=== PATIENT | female | born 1930 | race Caucasian/White ===

== ENCOUNTER 2017-06-04 08:20 | Inpatient (IN) | payer MEDICARE, BC ==
[2017-06-04] MEDS ORDERED: Sodium Chloride 0.9% 10 ML Syringe FLUSH PRN ×2 (09:10→14:34)
[2017-06-04] MEDS ORDERED: Clopidogrel 75 MG Tab PO ONE (09:13)
[2017-06-04] MEDS ORDERED: metFORMIN 500 MG Tab PO ONE (09:13)
[2017-06-04] MEDS ORDERED: Aspirin 81 MG Tab.Chew PO ONE (09:14)
--- NOTE | 2017-06-04 09:19 | EDM.PDOC ---
ED HPI GENERAL MEDICAL PROBLEM - General Chief Complaint: General Stated Complaint: LOW BLOOD SUGARS Time Seen by Provider: 06/04/17 09:00 Source of Information: Reports: Patient, EMS, Old Records History Limitations: Reports: No Limitations - History of Present Illness INITIAL COMMENTS - FREE TEXT/NARRATIVE: 86 yo female is brought to the ER today via EMS for a 3 day hx of R leg weakness. Onset was sudden. Cannot now walk. Fell out of bed this morning which is what prompted the EMS call. Lives with a male friend. Has intermittent chest pain, not currently. Says she does not have a primary care provider, but is on several prescription meds. Has not taken any of her meds yet today. EMS found her to be lethargic and minimally responsive initially and this was resolved with glucose after they found her to be hypoglycemic with a BS of 50. Has mild abdominal discomfort that is new. Family states she's not eating normal amts for the past few days. 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 ) - Related Data Allergies Allergy/AdvReac Type Severity Reaction Status Date / Time No Known Allergies Allergy Verified 02/05/15 15:43 Home Meds: Home Meds metFORMIN [Glucophage] 500 mg PO BID 12/23/14 [History] Acetaminophen [Tylenol] 325 mg PO Q4H PRN 12/31/14 [History] Levothyroxine Sodium [Synthroid] 175 mcg PO ACBREAKFAST 12/31/14 [History] Nicotine [Nicoderm CQ] 1 patch TD DAILY 12/31/14 [History] traMADol HCl [Tramadol HCl] 50 mg PO Q8HR PRN 12/31/14 [History] Aspirin [Children's Aspirin] 1 tab PO DAILY 02/05/15 [History] Clopidogrel [Plavix] 1 tab PO DAILY 02/05/15 [History] Doxycycline Hyclate 1 cap PO BID 02/05/15 [History] Hydrocodone/Acetaminophen [[place] 5-325] 1 tab PO Q4H PRN 02/05/15 [History] Insulin Glarg,Human.Rec.Analog [Lantus] 5 units SUBCUT DAILY 02/05/15 [History] Insulin Glarg,Human.Rec.Analog [Lantus] 10 units SUBCUT DAILY 02/05/15 [History] Insulin Lispro [Humalog] 1 dose SUBCUT ASDIRECTED 02/05/15 [History] Magnesium Hydroxide [Milk of Magnesia] 1 dose PO ASDIRECTED PRN 02/05/15 [ History] Sertraline HCl 25 mg PO DAILY 02/05/15 [History] Simvastatin [Zocor] 1 tab PO DAILY 02/05/15 [History] Past Medical History HEENT History: Reports: Impaired Vision Cardiovascular History: Reports: Blood Clots/VTE/DVT, Hypertension Musculoskeletal History: Reports: Osteoarthritis Endocrine/Metabolic History: Reports: Diabetes, Type II, Hypothyroidism - Infectious Disease History Infectious Disease History: Reports: Chicken Pox, Measles, Mumps - Past Surgical History HEENT Surgical History: Reports: Oral Surgery, Tonsillectomy Musculoskeletal Surgical History: Reports: Amputation Other Musculoskeletal Surgeries/Procedures:: toes of the left foot Social & Family History - Tobacco Use Smoking Status *Q: Never Smoker Years of Tobacco use: 70 Used Tobacco, but Quit: Yes Month Tobacco Last Used: December Second Hand Smoke Exposure: No - Caffeine Use Caffeine Use: Reports: Coffee - Alcohol Use Days Per Week of Alcohol Use: 0 - Recreational Drug Use Recreational Drug Use: No ED ROS GENERAL - Review of Systems Review Of Systems: See Below Constitutional: Reports: No Symptoms HEENT: Reports: No Symptoms Respiratory: Reports: No Symptoms Cardiovascular: Reports: Chest Pain (intermittent, now now) GI/Abdominal: Reports: No Symptoms : Reports: No Symptoms Musculoskeletal: Reports: No Symptoms Skin: Reports: No Symptoms Neurological: Reports: Weakness (RLE) Psychiatric: Reports: No Symptoms Hematologic/Lymphatic: Reports: No Symptoms ED EXAM, GENERAL - Physical Exam Exam: See Below Exam Limited By: No Limitations General Appearance: Alert, WD/WN, No Apparent Distress Eye Exam: Bilateral Eye: EOMI, Normal Inspection, PERRL Ears: Normal External Exam, Normal Canal, Hearing Grossly Normal, Normal TMs Ear Exam: Bilateral Ear: Auricle Normal, Canal Normal Nose: Normal Inspection, Normal Mucosa, No Blood Throat/Mouth: Normal Inspection, Normal Lips, Normal Teeth, Normal Oropharynx, Normal Voice, No Airway Compromise Head: Atraumatic, Normocephalic Neck: Normal Inspection, Supple, Non-Tender, Carotid Bruit (R sided bruit) Respiratory/Chest: No Respiratory Distress, Lungs Clear, Normal Breath Sounds, No Accessory Muscle Use Cardiovascular: Regular Rate, Rhythm, No Edema GI/Abdominal: Normal Bowel Sounds, Soft, Non-Tender Back Exam: Normal Inspection. No: CVA Tenderness (R), CVA Tenderness (L) Extremities: Normal Inspection, Normal Range of Motion, Non-Tender, No Pedal Edema Neurological: Alert, Oriented, CN II-XII Intact, Normal Cognition, Normal Reflexes, Sensory/Motor Deficit (R leg strength 2/5, Babinski up going on R. ) Psychiatric: Normal Affect, Normal Mood Skin Exam: Warm, Dry, Intact, Normal Color, No Rash Lymphatic: No Adenopathy EKG INTERPRETATION EKG Date: 06/04/17 Time: 10:05 Rhythm: NSR Rate (Beats/Min): 84 [place]: Normal P-Wave: Present QRS: Normal ST-T: Normal QT: Normal Comparison: No Change Course - Vital Signs Text/Narrative:: Had a watery stool here in the ER. Last Recorded V/S: Last Vital Signs Temp 35.6 C 06/04/17 08:39 Pulse 82 06/04/17 08:39 Resp 14 06/04/17 08:39 BP 118/62 06/04/17 08:39 Pulse Ox 96 06/04/17 08:39 - Orders/Labs/Meds Orders: Active Orders 24 hr Category Date Time Status EKG Documentation Completion [RC] ASDIRECTED Care 06/04/17 09:10 Active Hemoccult [Fecal Occult Blood Collection] [RC] Care 06/04/17 10:05 Active ASDIRECTED CLOSTRIDIUM DIFFICILE BY PCR [RM] Stat Lab 06/04/17 09:27 Uncollected TYPE AND SCREEN [BBK] Stat Lab 06/04/17 09:55 Received UA W/MICROSCOPIC [URIN] Stat Lab 06/04/17 09:09 Uncollected Sodium Chloride 0.9% [Saline Flush] Med 06/04/17 09:10 Active 10 ml FLUSH ASDIRECTED PRN Saline Lock Insert [OM.PC] Routine Oth 06/04/17 09:10 Ordered EKG 12 Lead [EK] Routine Ther 06/04/17 09:09 Ordered Medication Orders Sodium Chloride (Saline Flush) 10 ml FLUSH ASDIRECTED PRN PRN Reason: Keep Vein Open Labs: Laboratory Tests 06/04/17 06/04/17 Range/Units 09:55 09:55 WBC 10.2 (4.5-11.0) K/uL RBC 3.53 (3.30-5.50) M/uL Hgb 6.9 L* D (12.0-15.0) g/dL Hct 24.9 L (36.0-48.0) % MCV 71 L (80-98) fL MCH 20 L (27-31) pg MCHC 28 L (32-36) % Plt Count 461 H (150-400) K/uL Sodium 140 (140-148) mmol/L Potassium 3.1 L (3.6-5.2) mmol/L Chloride 102 (100-108) mmol/L Carbon Dioxide 31 (21-32) mmol/L Anion Gap 10.1 (5.0-14.0) mmol/L BUN 20 H (7-18) mg/dL Creatinine 0.9 (0.6-1.0) mg/dL Est Cr Clr Drug Dosing 42.82 mL/min Estimated GFR (MDRD) 59 L (>60) Glucose 164 H (74-106) mg/dL Calcium 8.5 (8.5-10.1) mg/dL Troponin I < 0.017 (0.000-0.056) ng/mL TSH, Ultra Sensitive 3.671 (0.358-3.740) uIU/mL Meds: Medications Generic Name Dose Route Start Last Admin Trade Name Freq PRN Reason Stop Dose Admin Sodium Chloride 10 ml 06/04/17 09:10 Saline Flush FLUSH ASDIRECTED PRN Keep Vein Open Discontinued Medications Generic Name Dose Route Start Last Admin Trade Name Freq PRN Reason Stop Dose Admin Aspirin 81 mg 06/04/17 09:14 06/04/17 10:01 Aspirin PO 06/04/17 09:15 81 mg ONETIME ONE Administration Clopidogrel Bisulfate 75 mg 06/04/17 09:13 06/04/17 10:01 Plavix PO 06/04/17 09:14 75 mg ONETIME ONE Administration Metformin HCl 500 mg 06/04/17 09:13 06/04/17 10:01 Glucophage PO 06/04/17 09:14 500 mg ONETIME ONE Administration Potassium Chloride 20 meq 06/04/17 11:07 Potassium Chloride PO 06/04/17 11:08 ONETIME ONE Departure - Departure Time of Disposition: 11:20 Disposition: Admitted As Inpatient 65 Condition: Fair Clinical Impression: Hypokalemia, Right leg weakness, Hypoglycemia Anemia Qualifiers: Anemia type: iron deficiency Iron deficiency anemia type: unspecified iron deficiency Qualified Code(s): D50.9 - Iron deficiency anemia, unspecified - Discharge Information Referrals: PCP,None [Primary Care Provider] - Forms: ED Department Discharge - My Orders Last 24 Hours: My Active Orders 06/04/17 09:09 UA W/MICROSCOPIC [URIN] Stat EKG 12 Lead [EK] Routine 06/04/17 09:10 EKG Documentation Completion [RC] ASDIRECTED Sodium Chloride 0.9% [Saline Flush] 10 ml FLUSH ASDIRECTED PRN Saline Lock Insert [OM.PC] Routine 06/04/17 09:27 CLOSTRIDIUM DIFFICILE BY PCR [RM] Stat 06/04/17 09:55 TYPE AND SCREEN [BBK] Stat 06/04/17 10:05 Hemoccult [Fecal Occult Blood Collection] [RC] ASDIRECTED - Assessment/Plan Last 24 Hours: My Active Orders 06/04/17 09:09 UA W/MICROSCOPIC [URIN] Stat EKG 12 Lead [EK] Routine 06/04/17 09:10 EKG Documentation Completion [RC] ASDIRECTED Sodium Chloride 0.9% [Saline Flush] 10 ml FLUSH ASDIRECTED PRN Saline Lock Insert [OM.PC] Routine 06/04/17 09:27 CLOSTRIDIUM DIFFICILE BY PCR [RM] Stat 06/04/17 09:55 TYPE AND SCREEN [BBK] Stat 06/04/17 10:05 Hemoccult [Fecal Occult Blood Collection] [RC] ASDIRECTED
--- NOTE | 2017-06-04 09:55 | CT ---
Head wo Cont INDICATION: Right leg weakness x3 days, sudden onset. Total DLP 698. COMPARISON: None FINDINGS: No acute intracranial hemorrhage, mass, or edema. Generalized cerebral and cerebellar volum e loss. Patchy low attenuation in the periventricular and subcortical deep white matter is nonspecifi c, but most compatible with chronic small-vessel ischemic changes. Trace fluid left mastoid air cells . Remainder unremarkable. IMPRESSION: No acute intracranial abnormality.
[2017-06-04] MEDS ORDERED: Potassium Chloride 10 MEQ Cap.ER PO ONE (11:07)
--- NOTE | 2017-06-04 12:57 | PCM.HP ---
H&P History of Present Illness - General Date of Service: 06/04/17 Admit Problem/Dx: Admission Diagnosis/Problem Admission Diagnosis/Problem Anemia Source of Information: Patient, Family, Provider, RN Notes Reviewed History Limitations: Reports: Altered Mental Status (Dementia) - History of Present Illness Initial Comments - Free Text/Narative: This patient is an 86-year-old woman who is admitted through the emergency department because of progressive weakness and severe anemia. Family and friend give a history that she has become progressively more weak over the past month to the point that she is been in bed most of the time over the past few weeks. About a month ago had an episode of hematemesis but has had none since then. She 's had abdominal pain and her oral intake has been relatively poor. Over the past 3 days has had significant weakness in her right leg to the point that she' s been unable to ambulate. 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 On evaluation in the emergency department her hemoglobin is 6.9 and she has a potassium of 3.1, renal function is fairly good. - Related Data Allergies/Adverse Reactions: Allergies Allergy/AdvReac Type Severity Reaction Status Date / Time No Known Allergies Allergy Verified 02/05/15 15:43 Home Medications: Home Meds metFORMIN [Glucophage] 500 mg PO BID 12/23/14 [History] Acetaminophen [Tylenol] 325 mg PO Q4H PRN 12/31/14 [History] Levothyroxine Sodium [Synthroid] 175 mcg PO ACBREAKFAST 12/31/14 [History] Nicotine [Nicoderm CQ] 1 patch TD DAILY 12/31/14 [History] traMADol HCl [Tramadol HCl] 50 mg PO Q8HR PRN 12/31/14 [History] Aspirin [Children's Aspirin] 1 tab PO DAILY 02/05/15 [History] Clopidogrel [Plavix] 1 tab PO DAILY 02/05/15 [History] Doxycycline Hyclate 1 cap PO BID 02/05/15 [History] Hydrocodone/Acetaminophen [[place] 5-325] 1 tab PO Q4H PRN 02/05/15 [History] Insulin Glarg,Human.Rec.Analog [Lantus] 5 units SUBCUT DAILY 02/05/15 [History] Insulin Glarg,Human.Rec.Analog [Lantus] 10 units SUBCUT DAILY 02/05/15 [History] Insulin Lispro [Humalog] 1 dose SUBCUT ASDIRECTED 02/05/15 [History] Magnesium Hydroxide [Milk of Magnesia] 1 dose PO ASDIRECTED PRN 02/05/15 [ History] Sertraline HCl 25 mg PO DAILY 02/05/15 [History] Simvastatin [Zocor] 1 tab PO DAILY 02/05/15 [History] Past Medical History HEENT History: Reports: Impaired Vision Cardiovascular History: Reports: Blood Clots/VTE/DVT, Hypertension Musculoskeletal History: Reports: Osteoarthritis Endocrine/Metabolic History: Reports: Diabetes, Type II, Hypothyroidism - Infectious Disease History Infectious Disease History: Reports: Chicken Pox, Measles, Mumps - Past Surgical History HEENT Surgical History: Reports: Oral Surgery, Tonsillectomy Musculoskeletal Surgical History: Reports: Amputation Other Musculoskeletal Surgeries/Procedures:: toes of the left foot Social & Family History - Tobacco Use Smoking Status *Q: Never Smoker Years of Tobacco use: 70 Used Tobacco, but Quit: Yes Month Tobacco Last Used: December Hand Smoke Exposure: No - Caffeine Use Caffeine Use: Reports: Coffee - Alcohol Use Days Per Week of Alcohol Use: 0 - Recreational Drug Use Recreational Drug Use: No H&P Review of Systems - Review of Systems: Review Of Systems: See Below General: Reports: Weakness, Fatigue, Decreased Appetite, Weight Loss. Denies: Fever, Chills HEENT: Reports: No Symptoms Pulmonary: Reports: No Symptoms Cardiovascular: Reports: No Symptoms Gastrointestinal: Reports: Abdominal Pain, Diarrhea, Decreased Appetite, Difficulty Swallowing, Hematemesis, Nausea. Denies: Distension, Hematochezia, Melena Genitourinary: Reports: No Symptoms Musculoskeletal: Reports: Other (Status post amputation of the left foot) Skin: Reports: No Symptoms Psychiatric: Reports: No Symptoms Neurological: Reports: Confusion, Weakness. Denies: Headache, Numbness, Paresthesia, Pre-Existing Deficit Hematologic/Lymphatic: Reports: Anemia Immunologic: Reports: No Symptoms Exam - Exam Exam: See Below - Vital Signs Vital Signs: Last Vital Signs Temp 96.1 F 06/04/17 08:39 Pulse 82 06/04/17 08:39 Resp 14 06/04/17 08:39 BP 118/62 06/04/17 08:39 Pulse Ox 96 06/04/17 08:39 Weight: 153 lb - Exam Quality Assessment: DVT Prophylaxis General: Alert, Cooperative, Mild Distress HEENT: Conjunctiva Clear, Hearing Intact, Normal Nasal Septum, Posterior Pharynx Clear, Pupils Equal. No: Mucosa Moist & [place] Neck: Supple, Trachea Midline, +2 Carotid Pulse wo Bruit Lungs: Clear to Auscultation, Normal Respiratory Effort Cardiovascular: Regular Rate, Regular Rhythm, Normal S1, Normal S2, Systolic Murmur. No: Diastolic Murmur GI/Abdominal Exam: Normal Bowel Sounds, Soft, No Organomegaly, No Distention, Tender, Mass (Lower quadrant). No: Guarding, Rigid, Rebound Back Exam: Normal Inspection, Full Range of Motion Extremities: Normal Inspection, Non-Tender, No Pedal Edema Skin: Warm, Dry, Intact Neurological: Cranial Nerves Intact, Normal Speech, Sensation Intact, Focal Deficit, Other (Moderate weakness right lower extremity). No: Strength Equal Bilateral Neuro Extensive - Mental Status: Alert, Disorientation to Time, Memory Loss- Remote Events, Memory Loss-Recent Events. No: Disorientation to Person, Disorientation to Place - Patient Data Lab Results Last 24 hrs: Laboratory Results - last 24 hr 06/04/17 06/04/17 06/04/17 Range/Units 09:55 09:55 09:55 WBC 10.2 (4.5-11.0) K/uL RBC 3.53 (3.30-5.50) M/uL Hgb 6.9 L* D (12.0-15.0) g/dL Hct 24.9 L (36.0-48.0) % MCV 71 L (80-98) fL MCH 20 L (27-31) pg MCHC 28 L (32-36) % Plt Count 461 H (150-400) K/uL Sodium 140 (140-148) mmol/L Potassium 3.1 L (3.6-5.2) mmol/L Chloride 102 (100-108) mmol/L Carbon Dioxide 31 (21-32) mmol/L Anion Gap 10.1 (5.0-14.0) mmol/L BUN 20 H (7-18) mg/dL Creatinine 0.9 (0.6-1.0) mg/dL Est Cr Clr Drug Dosing 42.82 mL/min Estimated GFR (MDRD) 59 L (>60) Glucose 164 H (74-106) mg/dL Calcium 8.5 (8.5-10.1) mg/dL Troponin I < 0.017 (0.000-0.056) ng/mL TSH, Ultra Sensitive 3.671 (0.358-3.740) uIU/mL Blood Type O POSITIVE Gel Antibody Screen Negative Result Diagrams: 06/04/17 09:55 06/04/17 09:55 *Q Meaningful Use (ADM) - VTE *Q VTE Criteria *Q: VTE Pharmacological Contraindications *Q: Patient has Severe Anemia - VTE Risk Assess *Q Each Risk Factor Represents 1 Point: None Total Score 1 Point Risk Factors: 0 Each Risk Factor Represents 2 Points: None Total Score 2 Point Risk Factors: 0 Each Risk Factor Represents 3 Points: Age 75 Years or Greater Total Score 3 Point Risk Factors: 3 Each Risk Factor Represents 5 Points: None Total Score 5 Point Risk Factors: 0 Venous Thromboembolism Risk Factor Score *Q: 3 - Stroke *Q Stroke Criteria *Q: - AMI *Q AMI Criteria *Q: Problem List Initiated/Reviewed/Updated: Yes Orders Last 24hrs: Active Orders 24 hr Category Date Time Status Patient Status Manage Transfer [TRANSFER] Routine ADT 06/04/17 12:28 Active EKG Documentation Completion [RC] ASDIRECTED Care 06/04/17 09:10 Active Hemoccult [Fecal Occult Blood Collection] [RC] Care 06/04/17 10:05 Active ASDIRECTED CLOSTRIDIUM DIFFICILE BY PCR [] Stat Lab 06/04/17 09:27 Uncollected PATIENT RETYPE [BBK] Stat Lab 06/04/17 09:55 Results TYPE AND SCREEN [BBK] Stat Lab 06/04/17 09:55 Results UA W/MICROSCOPIC [URIN] Stat Lab 06/04/17 09:09 Uncollected Sodium Chloride 0.9% [Saline Flush] Med 06/04/17 09:10 Active 10 ml FLUSH ASDIRECTED PRN Saline Lock Insert [OM.PC] Routine Oth 06/04/17 09:10 Ordered Resuscitation Status Routine Resus Stat 06/04/17 12:32 Ordered EKG 12 Lead [EK] Routine Ther 06/04/17 09:09 Ordered Medication Orders Sodium Chloride (Saline Flush) 10 ml FLUSH ASDIRECTED PRN PRN Reason: Keep Vein Open Assessment/Plan Comment:: ASSESSMENT AND PLAN SEVERE MICROCYTIC ANEMIA-likely secondary to GI blood loss, history of hematemesis one month ago. Question possible underlying malignancy given history of progressive decline over the past several weeks. -Iron studies and ferritin -Transfuse 2 units of red blood cells -Follow-up hemoglobin in a.m. -Protonix 40 mg IV every 12 hours -Consult Dr. Cárdenas for EGD and colonoscopy in a.m. RIGHT LEG WEAKNESS-specific etiology not apparent, CT scan of the head showed no evidence of acute or subacute CVA. Leg has been significantly weak for at least 3 days. Significant anemia may be contributing factor. -Consider lumbar spine imaging ABDOMINAL PAIN WITH LEFT LOWER QUADRANT MASS-also likely underlying cause of her recent decline in physical and cognitive status -CT scan of the abdomen and pelvis with IV and oral contrast TYPE 2 DIABETES MELLITUS-poor oral intake over the past several weeks, glucose level this morning found to be significantly low. -Hold usual insulin and and metformin -4 times a day glucometers -Low-dose sliding scale NovoLog MAINTENANCE ISSUES -DVT prophylaxis; SCUDs, hold on anticoagulation because of pending procedures and severe anemia -GI prophylaxis; Protonix as above -Baca catheter; not indicated -Nutrition; regular diet, nothing by mouth after midnight -Nicotine dependence; not required CODE STATUS-FULL CODE ADMISSION STATUS-patient will be admitted to inpatient status, expect at least a 2 night hospital stay for evaluation and management of problems as outlined above. At the time of this admission I do not reasonably expected evaluation and management of this problem will require more than a 96 hour hospital stay. DISPOSITION-anticipate discharge to home after the hospital stay. PRIMARY CARE PROVIDER-Mayi Bryant
[2017-06-04] MEDS ORDERED: Bisacodyl 5 MG Tab PO ONE ×2 (13:45→20:00)
[2017-06-04] MEDS ORDERED: 50% Dextrose in Water 50 ML Syringe IV PRN (14:34)
[2017-06-04] MEDS ORDERED: Magnesium Hydroxide 400 MG/5 ML Susp 30 ML Cup PO PRN (14:34)
[2017-06-04] MEDS ORDERED: Polyethylene Glycol 3350 Powder 17 GM Packet PO PRN (14:34)
[2017-06-04] MEDS ORDERED: Sodium Chloride 0.9% 1,000 ML IV SCH (14:34)
[2017-06-04] MEDS ORDERED: Acetaminophen/HYDROcodone 325-5 MG Tab PO PRN (14:34)
[2017-06-04] MEDS ORDERED: Docusate Sodium 100 MG Cap PO PRN (14:34)
[2017-06-04] MEDS ORDERED: Ondansetron 4 MG/2 ML SDV IV PRN (14:34)
[2017-06-04] MEDS ORDERED: Albuterol 0.083% 2.5 MG/3 ML Neb Soln NEB PRN (14:34)
[2017-06-04] MEDS ORDERED: Glucose Gel 15 GM in 37.5 GM Tube PO PRN (14:34)
[2017-06-04] MEDS ORDERED: Acetaminophen 325 MG Tab PO PRN (14:34)
[2017-06-04] MEDS ORDERED: Potassium Chloride 20 MEQ Tab.ER PO ONE (15:30)
[2017-06-04] MEDS: Pantoprazole 40 MG Vial IV SCH (16:11)
[2017-06-04] MEDS: Potassium Chloride 20 MEQ, Lidocaine 1% 2 ML in Sodium Chloride 0.9% 100 ML IV SCH ×2 (16:15→21:02)
[2017-06-04] MEDS ORDERED: Iopamidol 612 MG/ML 100 ML Bottle IV SCH (16:45)
[2017-06-04] MEDS ORDERED: Sodium Chloride 0.9% 80 ML IV SCH (16:45)
[2017-06-04] MEDS ORDERED: Polyethylene Glycol 3350 Powder 238 GM Bot PO ONE (17:00)
[2017-06-04] MEDS: Sodium Ferric Gluconate Cmplex 250 MG in Sodium Chloride 0.9% 100 ML IV ONE ×2 (17:07→21:14)
[2017-06-04] MEDS: Insulin Aspart 100 Units/ML 3 ML Pen SUBCUT SCH ×2 (18:15→21:11)
[2017-06-04] MEDS ORDERED: Potassium Chloride 40 MEQ in Premix Bag 1 BAG IV ONE (20:00)
[2017-06-04] MEDS: Simvastatin 20 MG Tab PO SCH (21:15)
[2017-06-05] MEDS ORDERED: Dextrose 5%-0.9% NaCl 1,000 ML IV SCH ×2 (05:30→11:15)
[2017-06-05] MEDS: Pantoprazole 40 MG Vial IV SCH ×2 (05:46→14:34)
[2017-06-05] MEDS: Insulin Aspart 100 Units/ML 3 ML Pen SUBCUT SCH ×4 (07:28→21:17)
[2017-06-05] MEDS ORDERED: Levothyroxine 25 MCG Tab PO SCH (07:30)
[2017-06-05] MEDS ORDERED: cefTRIAXone 1 GM in Sodium Chloride 0.9% 50 ML IV SCH (08:00)
[2017-06-05] MEDS ORDERED: SIMVASTATIN PO SCH (09:00)
[2017-06-05] MEDS ORDERED: Propofol 200 MG/20 ML SDV ONE (09:02)
[2017-06-05] MEDS ORDERED: fentaNYL 100 MCG/2 ML SDV ONE (09:02)
[2017-06-05] MEDS ORDERED: Sodium Ferric Gluconate Cmplex 250 MG in Sodium Chloride 0.9% 100 ML IV ONE (10:00)
[2017-06-05] MEDS: Sertraline 25 MG Tab PO SCH (10:16)
--- NOTE | 2017-06-05 11:20 | PCM.PN ---
- General Info Date of Service: 06/05/17 Subjective Update: This patient has improved modestly since admission, slightly more alert and energetic. Appears to have at least mild to moderate cognitive impairment and difficulty with memory. Chest x-ray showed evidence of large masses within the right chest. CT scan shows evidence of large cystic lesions within the chest as well as several smaller lesions. Hemoglobin has come up following transfusion of 2 units of red blood cells. EGD and colonoscopy performed this morning by Dr. Cárdenas show no obvious source of blood loss or other significant abnormalities. Vital signs have been stable and she has remained afebrile. - Patient Data Vitals - Most Recent: Last Vital Signs Temp 97.3 F 06/05/17 07:00 Pulse 94 06/05/17 10:00 Resp 18 06/05/17 10:00 BP 161/65 H 06/05/17 10:00 Pulse Ox 91 L 06/05/17 10:00 Weight - Most Recent: 137 lb 1.6 oz I&O - Last 24 Hours: Intake & Output 06/04/17 06/05/17 06/05/17 22:59 06:59 14:59 Intake Total 720 2056 Output Total 1375 200 100 Balance -655 1856 -100 Lab Results Last 24 Hours: Laboratory Results - last 24 hr 06/04/17 06/04/17 06/04/17 Range/Units 14:34 14:34 14:34 WBC (4.5-11.0) K/uL RBC (3.30-5.50) M/uL Hgb (12.0-15.0) g/dL Hct (36.0-48.0) % MCV (80-98) fL MCH (27-31) pg MCHC (32-36) % Plt Count (150-400) K/uL Neut % (Auto) (36-66) % Lymph % (Auto) (24-44) % [place] % (Auto) (2-6) % Eos % (Auto) (2-4) % Baso % (Auto) (0-1) % Sodium (140-148) mmol/L Potassium (3.6-5.2) mmol/L Chloride (100-108) mmol/L Carbon Dioxide (21-32) mmol/L Anion Gap (5.0-14.0) mmol/L BUN (7-18) mg/dL Creatinine (0.6-1.0) mg/dL Est Cr Clr Drug Dosing mL/min Estimated GFR (MDRD) (>60) Glucose (74-106) mg/dL Calcium (8.5-10.1) mg/dL Magnesium (1.8-2.4) mg/dL Iron 14 L (50-170) ug/dL TIBC 170 L (250-450) ug/dl % Saturation 8 L (20-55) % Ferritin 280 (8-388) ng/ml Total Bilirubin 0.4 (0.2-1.0) mg/dL Direct Bilirubin 0.11 (0.0-0.2) mg/dL Indirect Bilirubin 0.29 AST 21 (15-37) U/L ALT 15 (12-78) U/L Alkaline Phosphatase 99 (46-116) U/L Total Protein 4.9 L (6.4-8.2) g/dL Albumin 2.0 L (3.4-5.0) g/dL Globulin 2.9 (2.3-3.5) g/dL Albumin/Globulin Ratio 0.7 L (1.2-2.2) Urine Color Urine Appearance Urine pH (4.5-8.0) Ur Specific [place] (1.008-1.030) Urine Protein (NEGATIVE) mg/dL Urine Glucose (UA) (NEGATIVE) mg/dL Urine Ketones (NEGATIVE) mg/dL Urine Occult Blood (NEGATIVE) Urine Nitrite (NEGATIVE) Urine Bilirubin (NEGATIVE) Urine Urobilinogen (NORMAL) mg/dL Ur Leukocyte Esterase (NEGATIVE) Urine RBC (0-5) Urine WBC (0-5) Ur Epithelial Cells Amorphous Sediment Urine Bacteria Urine Mucus 06/04/17 06/05/17 06/05/17 Range/Units 15:00 04:30 04:30 WBC 10.8 (4.5-11.0) K/uL RBC 4.20 (3.30-5.50) M/uL Hgb 9.4 L D (12.0-15.0) g/dL Hct 30.6 L (36.0-48.0) % MCV 73 L (80-98) fL MCH 22 L (27-31) pg MCHC 31 L (32-36) % Plt Count 499 H (150-400) K/uL Neut % (Auto) 76 H (36-66) % Lymph % (Auto) 8 L (24-44) % [place] % (Auto) 13 H (2-6) % Eos % (Auto) 2 (2-4) % Baso % (Auto) 0 (0-1) % Sodium 144 (140-148) mmol/L Potassium 3.6 (3.6-5.2) mmol/L Chloride 105 (100-108) mmol/L Carbon Dioxide 28 (21-32) mmol/L Anion Gap 14.6 H (5.0-14.0) mmol/L BUN 16 (7-18) mg/dL Creatinine 0.7 (0.6-1.0) mg/dL Est Cr Clr Drug Dosing 55.06 mL/min Estimated GFR (MDRD) > 60 (>60) Glucose 62 L (74-106) mg/dL Calcium 8.2 L (8.5-10.1) mg/dL Magnesium 1.8 (1.8-2.4) mg/dL Iron (50-170) ug/dL TIBC (250-450) ug/dl % Saturation (20-55) % Ferritin (8-388) ng/ml Total Bilirubin 0.4 (0.2-1.0) mg/dL Direct Bilirubin (0.0-0.2) mg/dL Indirect Bilirubin AST 22 (15-37) U/L ALT 14 (12-78) U/L Alkaline Phosphatase 102 (46-116) U/L Total Protein 5.4 L (6.4-8.2) g/dL Albumin 1.9 L (3.4-5.0) g/dL Globulin 3.5 (2.3-3.5) g/dL Albumin/Globulin Ratio 0.5 L (1.2-2.2) Urine Color Yellow Urine Appearance Cloudy Urine pH 5.0 (4.5-8.0) Ur Specific [place] 1.015 (1.008-1.030) Urine Protein Negative (NEGATIVE) mg/dL Urine Glucose (UA) Normal (NEGATIVE) mg/dL Urine Ketones Negative (NEGATIVE) mg/dL Urine Occult Blood Negative (NEGATIVE) Urine Nitrite Positive H (NEGATIVE) Urine Bilirubin Negative (NEGATIVE) Urine Urobilinogen Normal (NORMAL) mg/dL Ur Leukocyte Esterase Large (NEGATIVE) Urine RBC 0-5 (0-5) Urine WBC 30-40 H (0-5) Ur Epithelial Cells Few Amorphous Sediment Few Urine Bacteria Many Urine Mucus Rare Shayan Results Last 24 Hours: Microbiology 06/04/17 22:00 Stool Occult Blood (SHAYAN) - Final Stool / Feces 06/04/17 19:12 Clostridium difficile (PCR) - Final Stool / Feces NEGATIVE CDIFF TOXIN Med Orders - Current: Current Medications Acetaminophen (Tylenol) 650 mg PO Q4H PRN PRN Reason: Pain (Mild 1-3)/fever Hydrocodone Bitart/Acetaminophen ([place] 325-5 Mg) 1 tab PO Q4H PRN PRN Reason: Pain (moderate 4-6) Albuterol (Proventil Neb Soln) 2.5 mg NEB Q4H PRN PRN Reason: Shortness Of Breath/wheezing Dextrose (Glutose 15) 15 gm PO ASDIRECTED PRN PRN Reason: Hypoglycemia Dextrose/Water (Dextrose 50% In Water) 50 ml IV ASDIRECTED PRN PRN Reason: Hypoglycemia Last Admin: 06/05/17 05:38 Dose: 25 ml Docusate Sodium (Colace) 100 mg PO BID PRN PRN Reason: Constipation Ferric Sodium Gluconate Complex 250 mg/ Sodium Chloride 120 mls @ 50 mls/hr IV ONETIME ONE Stop: 06/05/17 12:23 Last Admin: 06/05/17 10:54 Dose: 50 mls/hr Ceftriaxone Sodium 1 gm/ (Sodium Chloride) 50 mls @ 100 mls/hr IV Q24H [facility] Last Admin: 06/05/17 08:41 Dose: 100 mls/hr Dextrose/Sodium Chloride (Dextrose 5%-Normal Saline) 1,000 mls @ 50 mls/hr IV ASDIRECTED [facility] Insulin Aspart (Novolog) 0 unit SUBCUT QIDACANDBED [facility] PRN Reason: Protocol Last Admin: 06/05/17 07:28 Dose: Not Given Levothyroxine Sodium 100 mcg/ (Levothyroxine Sodium 75 mcg) 175 mcg PO ACBREAKFAST [facility] Last Admin: 06/05/17 07:31 Dose: 175 mcg Magnesium Hydroxide (Milk Of Magnesia) 30 ml PO Q12H PRN PRN Reason: Constipation Ondansetron HCl (Zofran) 4 mg IV Q4H PRN PRN Reason: Nausea/Vomiting Pantoprazole Sodium (Protonix Iv) 40 mg IV Q12H [facility] Last Admin: 06/05/17 05:46 Dose: 40 mg Polyethylene Glycol (Miralax) 17 gm PO DAILY PRN PRN Reason: Constipation Sertraline HCl (Zoloft) 25 mg PO DAILY [facility] Last Admin: 06/05/17 10:16 Dose: 25 mg Simvastatin (Zocor) 10 mg PO BEDTIME [facility] Last Admin: 06/04/17 21:15 Dose: 10 mg Sodium Chloride (Saline Flush) 10 ml FLUSH ASDIRECTED PRN PRN Reason: Keep Vein Open Discontinued Medications Aspirin (Aspirin) 81 mg PO ONETIME ONE Stop: 06/04/17 09:15 Last Admin: 06/04/17 10:01 Dose: 81 mg Bisacodyl (Dulcolax) 10 mg PO ONETIME ONE Stop: 06/04/17 13:46 Last Admin: 06/04/17 16:15 Dose: Not Given Bisacodyl (Dulcolax) 10 mg PO ONETIME ONE Stop: 06/04/17 20:01 Last Admin: 06/04/17 21:15 Dose: 10 mg Clopidogrel Bisulfate (Plavix) 75 mg PO ONETIME ONE Stop: 06/04/17 09:14 Last Admin: 06/04/17 10:01 Dose: 75 mg Fentanyl (Sublimaze) Confirm Administered Dose 100 mcg .ROUTE .STK-MED ONE Stop: 06/05/17 09:03 Sodium Chloride (Normal Saline) 1,000 mls @ 125 mls/hr IV ASDIRECTED [facility] Last Admin: 06/04/17 15:15 Dose: 125 mls/hr Potassium Chloride 20 meq/Lidocaine HCl 2 ml/ Sodium Chloride 112 mls @ 56 mls/ hr IV Q2H [facility] Stop: 06/04/17 19:59 Last Admin: 06/04/17 21:02 Dose: 56 mls/hr Ferric Sodium Gluconate Complex 250 mg/ Sodium Chloride 120 mls @ 50 mls/hr IV ONETIME ONE Stop: 06/04/17 22:23 Last Admin: 06/04/17 21:14 Dose: Not Given Sodium Chloride (Normal Saline) 80 mls @ 3 mls/sec IV ASDIRECTED [facility] Stop: 06/04/17 18:00 Last Admin: 06/04/17 18:14 Dose: 3 mls/sec Dextrose/Sodium Chloride (Dextrose 5%-Normal Saline) 1,000 mls @ 125 mls/hr IV ASDIRECTED [facility] Last Admin: 06/05/17 05:50 Dose: 125 mls/hr Iopamidol (Isovue-300 (61%)) 100 ml IV . DIRECTED [facility] Stop: 06/04/17 18:00 Last Admin: 06/04/17 18:12 Dose: 100 ml Metformin HCl (Glucophage) 500 mg PO ONETIME ONE Stop: 06/04/17 09:14 Last Admin: 06/04/17 10:01 Dose: 500 mg Polyethylene Glycol (Miralax) 238 gm PO ONETIME ONE Stop: 06/04/17 17:01 Last Admin: 06/04/17 19:35 Dose: 238 gm Potassium Chloride (Potassium Chloride) 20 meq PO ONETIME ONE Stop: 06/04/17 11:08 Last Admin: 06/04/17 12:33 Dose: 20 meq Potassium Chloride (Klor-Con M20) 40 meq PO ONETIME ONE Stop: 06/04/17 15:31 Last Admin: 06/04/17 18:14 Dose: Not Given Propofol (Diprivan 20 Ml) Confirm Administered Dose 200 mg .ROUTE .STK-MED ONE Stop: 06/05/17 09:03 Sodium Chloride (Saline Flush) 10 ml FLUSH ASDIRECTED PRN PRN Reason: Keep Vein Open - Exam Quality Assessment: DVT Prophylaxis General: Alert, Cooperative, Mild Distress Lungs: Decreased Breath Sounds. No: Crackles, Rales, Rhonchi, Rub, Stridor, Wheezing Cardiovascular: Regular Rate, Regular Rhythm, No Murmurs GI/Abdominal Exam: Normal Bowel Sounds, Soft, Non-Tender, No Organomegaly, No Distention Extremities: Non-Tender, No Pedal Edema Skin: Warm, Dry, Intact - Problem List Review Problem List Initiated/Reviewed/Updated: Yes - My Orders Last 24 Hours: My Active Orders 06/04/17 12:32 Resuscitation Status Routine 06/04/17 14:34 Patient Status [ADT] Routine Ambulate [RC] QID Blood Glucose Check, Bedside [RC] QIDACANDBED Communication Order [RC] STAT Diabetes Education [RC] Click to Edit Height and Weight [RC] DAILY Intake and Output [RC] QSHIFT Notify Provider Consults [RC] ASDIRECTED Notify Provider Vital Signs [RC] ASDIRECTED Notify Provider [RC] PRN Oxygen Therapy [RC] PRN Peripheral IV Care [RC] Q12H RT Aerosol Therapy [RC] ASDIRECTED Up With Assistance [RC] ASDIRECTED Up to Chair [RC] QID VTE/DVT Education [RC] Per Unit Routine Vital Signs [RC] Q4H Consult to Physician [CONS] Routine PT Evaluation and Treatment [CONS] Routine Chest 2V [CR] Stat Chest Abdomen Pelvis w Cont [CT] Stat Acetaminophen [Tylenol] 650 mg PO Q4H PRN Acetaminophen/HYDROcodone [[place] 325-5 MG] 1 tab PO Q4H PRN Albuterol [Proventil Neb Soln] 2.5 mg NEB Q4H PRN Dextrose 50% in Water 50 ml IV ASDIRECTED PRN Dextrose [Glutose 15] 15 gm PO ASDIRECTED PRN Docusate Sodium [Colace] 100 mg PO BID PRN Magnesium Hydroxide [Milk of Magnesia] 30 ml PO Q12H PRN Ondansetron [Zofran] 4 mg IV Q4H PRN Polyethylene Glycol 3350 [MiraLAX] 17 gm PO DAILY PRN Sodium Chloride 0.9% [Saline Flush] 10 ml FLUSH ASDIRECTED PRN Peripheral IV Insertion Adult [OM.PC] Routine Sequential Compression Device [OM.PC] Per Unit Routine Transfuse Red Blood Cells [COMM] Urgent VTE Pharmacological Contraindications [AST] Per Unit Routine 06/04/17 15:30 Pantoprazole [ProTONIX IV] 40 mg IV Q12H 06/04/17 17:00 Insulin Aspart [NovoLOG] See Protocol SUBCUT QIDACANDBED 06/04/17 18:56 Urinary Catheter Assessment [RC] Q12H 06/04/17 19:00 Insert Baca Catheter [Insert Urinary Catheter] [OM.PC] Q24H 06/04/17 19:12 CULTURE STOOL + SHIGATOX [RM] Stat 06/04/17 21:00 Simvastatin [Zocor] 10 mg PO BEDTIME 06/05/17 07:30 Levothyroxine [Synthroid] 175 mcg PO ACBREAKFAST 06/05/17 07:48 CULTURE URINE [RM] Stat 06/05/17 08:00 cefTRIAXone [Rocephin] 1 gm Sodium Chloride 0.9% [Normal Saline] 50 ml IV Q24H 06/05/17 10:00 Sodium Ferric Gluconate Cmplex [Ferrlecit IV] 250 mg Sodium Chloride 0.9% [ Normal Saline] 100 ml IV ONETIME 06/05/17 11:15 Dextrose 5%-0.9% NaCl [Dextrose 5%-Normal Saline] 1,000 ml IV ASDIRECTED 06/05/17 11:30 GLUCOSE POC LAB TO COLLECT [POC] QIDACANDBED 06/05/17 16:30 GLUCOSE POC LAB TO COLLECT [POC] QIDACANDBED 06/05/17 21:00 GLUCOSE POC LAB TO COLLECT [POC] QIDACANDBED 06/05/17 Breakfast NPO After Midnight [Nothing per Oral After Midnight Diet] [DIET] Nothing per Oral After Midnight Diet [DIET] 06/06/17 05:00 BASIC METABOLIC PANEL,BMP [CHEM] Timed CBC WITH AUTO DIFF [HEME] Timed 06/06/17 07:30 GLUCOSE POC LAB TO COLLECT [POC] QIDACANDBED 06/06/17 11:30 GLUCOSE POC LAB TO COLLECT [POC] QIDACANDBED 06/06/17 16:30 GLUCOSE POC LAB TO COLLECT [POC] QIDACANDBED 06/06/17 21:00 GLUCOSE POC LAB TO COLLECT [POC] QIDACANDBED 06/07/17 07:30 GLUCOSE POC LAB TO COLLECT [POC] QIDACANDBED 06/07/17 11:30 GLUCOSE POC LAB TO COLLECT [POC] QIDACANDBED 06/07/17 16:30 GLUCOSE POC LAB TO COLLECT [POC] QIDACANDBED 06/07/17 21:00 GLUCOSE POC LAB TO COLLECT [POC] QIDACANDBED 06/08/17 07:30 GLUCOSE POC LAB TO COLLECT [POC] QIDACANDBED 06/08/17 11:30 GLUCOSE POC LAB TO COLLECT [POC] QIDACANDBED 06/08/17 16:30 GLUCOSE POC LAB TO COLLECT [POC] QIDACANDBED 06/08/17 21:00 GLUCOSE POC LAB TO COLLECT [POC] QIDACANDBED 06/09/17 07:30 GLUCOSE POC LAB TO COLLECT [POC] QIDACANDBED 06/09/17 11:30 GLUCOSE POC LAB TO COLLECT [POC] QIDACANDBED 06/09/17 16:30 GLUCOSE POC LAB TO COLLECT [POC] QIDACANDBED 06/09/17 21:00 GLUCOSE POC LAB TO COLLECT [POC] QIDACANDBED 06/10/17 07:30 GLUCOSE POC LAB TO COLLECT [POC] QIDACANDBED 06/10/17 11:30 GLUCOSE POC LAB TO COLLECT [POC] QIDACANDBED 06/10/17 16:30 GLUCOSE POC LAB TO COLLECT [POC] QIDACANDBED 06/10/17 21:00 GLUCOSE POC LAB TO COLLECT [POC] QIDACANDBED 06/11/17 07:30 GLUCOSE POC LAB TO COLLECT [POC] QIDACANDBED 06/11/17 11:30 GLUCOSE POC LAB TO COLLECT [POC] QIDACANDBED 06/11/17 16:30 GLUCOSE POC LAB TO COLLECT [POC] QIDACANDBED 06/11/17 21:00 GLUCOSE POC LAB TO COLLECT [POC] QIDACANDBED 06/12/17 07:30 GLUCOSE POC LAB TO COLLECT [POC] QIDACANDBED 06/12/17 11:30 GLUCOSE POC LAB TO COLLECT [POC] QIDACANDBED 06/12/17 16:30 GLUCOSE POC LAB TO COLLECT [POC] QIDACANDBED 06/12/17 21:00 GLUCOSE POC LAB TO COLLECT [POC] QIDACANDBED 06/13/17 07:30 GLUCOSE POC LAB TO COLLECT [POC] QIDACANDBED 06/13/17 11:30 GLUCOSE POC LAB TO COLLECT [POC] QIDACANDBED 06/13/17 16:30 GLUCOSE POC LAB TO COLLECT [POC] QIDACANDBED 06/13/17 21:00 GLUCOSE POC LAB TO COLLECT [POC] QIDACANDBED 06/14/17 07:30 GLUCOSE POC LAB TO COLLECT [POC] QIDACANDBED 06/14/17 11:30 GLUCOSE POC LAB TO COLLECT [POC] QIDACANDBED 06/14/17 16:30 GLUCOSE POC LAB TO COLLECT [POC] QIDACANDBED 06/14/17 21:00 GLUCOSE POC LAB TO COLLECT [POC] QIDACANDBED 06/15/17 07:30 GLUCOSE POC LAB TO COLLECT [POC] QIDACANDBED 06/15/17 11:30 GLUCOSE POC LAB TO COLLECT [POC] QIDACANDBED 06/15/17 16:30 GLUCOSE POC LAB TO COLLECT [POC] QIDACANDBED 06/15/17 21:00 GLUCOSE POC LAB TO COLLECT [POC] QIDACANDBED 06/16/17 07:30 GLUCOSE POC LAB TO COLLECT [POC] QIDACANDBED 06/16/17 11:30 GLUCOSE POC LAB TO COLLECT [POC] QIDACANDBED 06/16/17 16:30 GLUCOSE POC LAB TO COLLECT [POC] QIDACANDBED 06/16/17 21:00 GLUCOSE POC LAB TO COLLECT [POC] QIDACANDBED 06/17/17 07:30 GLUCOSE POC LAB TO COLLECT [POC] QIDACANDBED 06/17/17 11:30 GLUCOSE POC LAB TO COLLECT [POC] QIDACANDBED 06/17/17 16:30 GLUCOSE POC LAB TO COLLECT [POC] QIDACANDBED 06/17/17 21:00 GLUCOSE POC LAB TO COLLECT [POC] QIDACANDBED 06/18/17 07:30 GLUCOSE POC LAB TO COLLECT [POC] QIDACANDBED 06/18/17 11:30 GLUCOSE POC LAB TO COLLECT [POC] QIDACANDBED 06/18/17 16:30 GLUCOSE POC LAB TO COLLECT [POC] QIDACANDBED 06/18/17 21:00 GLUCOSE POC LAB TO COLLECT [POC] QIDACANDBED 06/19/17 07:30 GLUCOSE POC LAB TO COLLECT [POC] QIDACANDBED 06/19/17 11:30 GLUCOSE POC LAB TO COLLECT [POC] QIDACANDBED 06/19/17 16:30 GLUCOSE POC LAB TO COLLECT [POC] QIDACANDBED 06/19/17 21:00 GLUCOSE POC LAB TO COLLECT [POC] QIDACANDBED 06/20/17 07:30 GLUCOSE POC LAB TO COLLECT [POC] QIDACANDBED 06/20/17 11:30 GLUCOSE POC LAB TO COLLECT [POC] QIDACANDBED 06/20/17 16:30 GLUCOSE POC LAB TO COLLECT [POC] QIDACANDBED 06/20/17 21:00 GLUCOSE POC LAB TO COLLECT [POC] QIDACANDBED 06/21/17 07:30 GLUCOSE POC LAB TO COLLECT [POC] QIDACANDBED 06/21/17 11:30 GLUCOSE POC LAB TO COLLECT [POC] QIDACANDBED 06/21/17 16:30 GLUCOSE POC LAB TO COLLECT [POC] QIDACANDBED 06/21/17 21:00 GLUCOSE POC LAB TO COLLECT [POC] QIDACANDBED 06/22/17 07:30 GLUCOSE POC LAB TO COLLECT [POC] QIDACANDBED 06/22/17 11:30 GLUCOSE POC LAB TO COLLECT [POC] QIDACANDBED 06/22/17 16:30 GLUCOSE POC LAB TO COLLECT [POC] QIDACANDBED 06/22/17 21:00 GLUCOSE POC LAB TO COLLECT [POC] QIDACANDBED 06/23/17 07:30 GLUCOSE POC LAB TO COLLECT [POC] QIDACANDBED 06/23/17 11:30 GLUCOSE POC LAB TO COLLECT [POC] QIDACANDBED 06/23/17 16:30 GLUCOSE POC LAB TO COLLECT [POC] QIDACANDBED 06/23/17 21:00 GLUCOSE POC LAB TO COLLECT [POC] QIDACANDBED 06/24/17 07:30 GLUCOSE POC LAB TO COLLECT [POC] QIDACANDBED 06/24/17 11:30 GLUCOSE POC LAB TO COLLECT [POC] QIDACANDBED 06/24/17 16:30 GLUCOSE POC LAB TO COLLECT [POC] QIDACANDBED 06/24/17 21:00 GLUCOSE POC LAB TO COLLECT [POC] QIDACANDBED 06/25/17 07:30 GLUCOSE POC LAB TO COLLECT [POC] QIDACANDBED 06/25/17 11:30 GLUCOSE POC LAB TO COLLECT [POC] QIDACANDBED 06/25/17 16:30 GLUCOSE POC LAB TO COLLECT [POC] QIDACANDBED 06/25/17 21:00 GLUCOSE POC LAB TO COLLECT [POC] QIDACANDBED 06/26/17 07:30 GLUCOSE POC LAB TO COLLECT [POC] QIDACANDBED 06/26/17 11:30 GLUCOSE POC LAB TO COLLECT [POC] QIDACANDBED 06/26/17 16:30 GLUCOSE POC LAB TO COLLECT [POC] QIDACANDBED 06/26/17 21:00 GLUCOSE POC LAB TO COLLECT [POC] QIDACANDBED 06/27/17 07:30 GLUCOSE POC LAB TO COLLECT [POC] QIDACANDBED 06/27/17 11:30 GLUCOSE POC LAB TO COLLECT [POC] QIDACANDBED 06/27/17 16:30 GLUCOSE POC LAB TO COLLECT [POC] QIDACANDBED 06/27/17 21:00 GLUCOSE POC LAB TO COLLECT [POC] QIDACANDBED 06/28/17 07:30 GLUCOSE POC LAB TO COLLECT [POC] QIDACANDBED 06/28/17 11:30 GLUCOSE POC LAB TO COLLECT [POC] QIDACANDBED 06/28/17 16:30 GLUCOSE POC LAB TO COLLECT [POC] QIDACANDBED 06/28/17 21:00 GLUCOSE POC LAB TO COLLECT [POC] QIDACANDBED 06/29/17 07:30 GLUCOSE POC LAB TO COLLECT [POC] QIDACANDBED - Plan Plan:: ASSESSMENT AND PLAN SEVERE MICROCYTIC ANEMIA-likely secondary to GI blood loss. She has received iron replacement therapy as well as 2 units of red blood cells. Hemoglobin has come up to 9.5 and she has been hemodynamically stable with no evidence of active bleeding. EGD performed this morning with colonoscopy by Dr. Cárdenas showed no obvious source of blood loss or underlying malignancy. -Follow-up hemoglobin in a.m. PROBABLE MALIGNANCY RIGHT LUNG-chest x-ray and CT scan showed multiple large cystic lesions within the right lung. Discussed with the patient and she is unable to provide direction concerning her wishes for further evaluation and management. I discussed these findings with her healthcare power of assistant county attorney, he will meet with the patient later today and discussed options for management. RIGHT LEG WEAKNESS-specific etiology not apparent, CT scan of the head showed no evidence of acute or subacute CVA. Leg has been significantly weak for at least 3 days. Significant anemia may be contributing factor. -Consider lumbar spine imaging URINARY RETENTION-specific etiology not apparent, large distended bladder identified on CT scan. 900 mL of urine removed immediately after Baca catheter was placed -Continue use of Baca catheter HYPOKALEMIA-resolved after potassium replacement -Recheck potassium level in a.m. TYPE 2 DIABETES MELLITUS-poor oral intake over the past several weeks, glucose level this morning found to be significantly low. -Hold usual insulin and and metformin -4 times a day glucometers -Low-dose sliding scale NovoLog MAINTENANCE ISSUES -DVT prophylaxis; SCUDs, hold on anticoagulation because of pending procedures and severe anemia -GI prophylaxis; Protonix as above -Baca catheter; not indicated -Nutrition; regular diet, nothing by mouth after midnight -Nicotine dependence; not required CODE STATUS-FULL CODE ADMISSION STATUS-patient will be admitted to inpatient status, expect at least a 2 night hospital stay for evaluation and management of problems as outlined above. At the time of this admission I do not reasonably expected evaluation and management of this problem will require more than a 96 hour hospital stay. DISPOSITION-anticipate discharge to home after the hospital stay. PRIMARY CARE PROVIDER-Mayi Bryant
[2017-06-05] MEDS ORDERED: Haloperidol Lactate 5 MG/ML SDV IVPUSH PRN (13:29)
[2017-06-05] MEDS ORDERED: Divalproex Sodium Delayed-Release 250 MG Tab.CR PO ONE (14:00)
[2017-06-05] MEDS ORDERED: Haloperidol 1 MG Tab PO PRN (15:53)
[2017-06-05] MEDS: Cefdinir 300 MG Cap PO SCH ×2 (16:36→21:24)
[2017-06-05] MEDS: Melatonin 3 MG Tab PO SCH (21:11)
[2017-06-05] MEDS: Simvastatin 20 MG Tab PO SCH (21:13)
[2017-06-05] MEDS: Divalproex Sodium Delayed-Release 250 MG Tab.CR PO SCH (21:14)
--- NOTE | 2017-06-06 01:29 | PCM.SN ---
- Free Text/Narrative Note: date/time; 06-05-17 at 2030 call from 2 [facility]; Mrs. Crockett pulled out her indwelling gray cath with bulb fully inflated. o; exam by Nursing of external genitalia did not show any active bleeding. scant amount of blood at urinary meatus, area cleansed a; removal of gray cath by patient p; advise to leave out for now, monitor for urinary output. If has not voided by 0300, will need to re-scan and consider replacing indwelling cath.
[2017-06-06] MEDS: Insulin Aspart 100 Units/ML 3 ML Pen SUBCUT SCH ×4 (07:40→21:29)
[2017-06-06] MEDS: Divalproex Sodium Delayed-Release 250 MG Tab.CR PO SCH ×2 (07:40→16:42)
[2017-06-06] MEDS ORDERED: Potassium Chloride 20 MEQ Tab.ER PO ONE ×2 (09:00→17:00)
[2017-06-06] MEDS: Cefdinir 300 MG Cap PO SCH ×2 (09:56→21:29)
[2017-06-06] MEDS: Sertraline 25 MG Tab PO SCH (09:56)
--- NOTE | 2017-06-06 10:07 | PCM.PN ---
- General Info Date of Service: 06/06/17 Subjective Update: Ms. Crockett has had difficulty with agitation and confusion over the past 24 hours. Yesterday pulled out her IV and during the night pulled out her Baca catheter. She appears to be less agitated this morning and was even somewhat conversant. I reviewed with her again the findings that we've identified thus far including probable lung cancer involving much of the right lung. She told me that she does not want to consider further aggressive interventions or evaluation and would like to be kept comfortable with admission to the halfway and hospice care. Functional Status: Reports: Pain Controlled - Review of Systems General: Reports: Weakness. Denies: Fever, Chills Pulmonary: Reports: No Symptoms Cardiovascular: Reports: No Symptoms Gastrointestinal: Reports: No Symptoms Neurological: Reports: Confusion - Patient Data Vitals - Most Recent: Last Vital Signs Temp 97.7 F 06/06/17 07:18 Pulse 101 H 06/06/17 07:18 Resp 20 06/06/17 07:18 BP 163/81 H 06/06/17 07:18 Pulse Ox 89 L 06/06/17 07:18 Weight - Most Recent: 132 lb 3.2 oz I&O - Last 24 Hours: Intake & Output 06/05/17 06/06/17 06/06/17 23:59 06:59 14:59 Intake Total 120 Output Total Balance 120 Lab Results Last 24 Hours: Laboratory Results - last 24 hr 06/06/17 06/06/17 Range/Units 04:15 04:15 WBC 11.6 H (4.5-11.0) K/uL RBC 4.64 (3.30-5.50) M/uL Hgb 10.4 L (12.0-15.0) g/dL Hct 33.9 L (36.0-48.0) % MCV 73 L (80-98) fL MCH 22 L (27-31) pg MCHC 31 L (32-36) % Plt Count 498 H (150-400) K/uL Neut % (Auto) 75 H (36-66) % Lymph % (Auto) 9 L (24-44) % [place] % (Auto) 13 H (2-6) % Eos % (Auto) 2 (2-4) % Baso % (Auto) 0 (0-1) % Sodium 143 (140-148) mmol/L Potassium 3.0 L (3.6-5.2) mmol/L Chloride 105 (100-108) mmol/L Carbon Dioxide 30 (21-32) mmol/L Anion Gap 11.0 (5.0-14.0) mmol/L BUN 10 (7-18) mg/dL Creatinine 0.6 (0.6-1.0) mg/dL Est Cr Clr Drug Dosing 62.53 mL/min Estimated GFR (MDRD) > 60 (>60) Glucose 139 H (74-106) mg/dL Calcium 8.4 L (8.5-10.1) mg/dL Shayan Results Last 24 Hours: Microbiology 06/05/17 07:48 Urine Culture - Preliminary Urine, Clean Catch 06/04/17 19:12 Stool Culture - Preliminary Stool / Feces - Final NEGATIVE FOR SHIGA TOXIN 1 - Final NEGATIVE FOR SHIGA TOXIN 2 Med Orders - Current: Current Medications Acetaminophen (Tylenol) 650 mg PO Q4H PRN PRN Reason: Pain (Mild 1-3)/fever Last Admin: 06/06/17 07:52 Dose: 650 mg Hydrocodone Bitart/Acetaminophen ([place] 325-5 Mg) 1 tab PO Q4H PRN PRN Reason: Pain (moderate 4-6) Albuterol (Proventil Neb Soln) 2.5 mg NEB Q4H PRN PRN Reason: Shortness Of Breath/wheezing Cefdinir (Omnicef) 300 mg PO BID [facility] Last Admin: 06/06/17 09:56 Dose: 300 mg Dextrose (Glutose 15) 15 gm PO ASDIRECTED PRN PRN Reason: Hypoglycemia Divalproex Sodium (Divalproex Sodium) 250 mg PO BIDMEALS [facility] Last Admin: 06/06/17 07:40 Dose: 250 mg Docusate Sodium (Colace) 100 mg PO BID PRN PRN Reason: Constipation Haloperidol (Haldol) 1 mg PO Q2H PRN PRN Reason: Agitation Insulin Aspart (Novolog) 0 unit SUBCUT QIDACANDBED [facility] PRN Reason: Protocol Last Admin: 06/06/17 07:40 Dose: 1 units Levothyroxine Sodium 100 mcg/ (Levothyroxine Sodium 75 mcg) 175 mcg PO ACBREAKFAST [facility] Last Admin: 06/06/17 07:40 Dose: 175 mcg Magnesium Hydroxide (Milk Of Magnesia) 30 ml PO Q12H PRN PRN Reason: Constipation Melatonin (Melatonin) 9 mg PO BEDTIME [facility] Last Admin: 06/05/17 21:11 Dose: 9 mg Ondansetron HCl (Zofran) 4 mg IV Q4H PRN PRN Reason: Nausea/Vomiting Polyethylene Glycol (Miralax) 17 gm PO DAILY PRN PRN Reason: Constipation Potassium Chloride (Klor-Con M20) 40 meq PO ONETIME ONE Stop: 06/06/17 17:01 Sertraline HCl (Zoloft) 25 mg PO DAILY [facility] Last Admin: 06/06/17 09:56 Dose: 25 mg Simvastatin (Zocor) 10 mg PO BEDTIME [facility] Last Admin: 06/05/17 21:13 Dose: 10 mg Sodium Chloride (Saline Flush) 10 ml FLUSH ASDIRECTED PRN PRN Reason: Keep Vein Open Discontinued Medications Aspirin (Aspirin) 81 mg PO ONETIME ONE Stop: 06/04/17 09:15 Last Admin: 06/04/17 10:01 Dose: 81 mg Bisacodyl (Dulcolax) 10 mg PO ONETIME ONE Stop: 06/04/17 13:46 Last Admin: 06/04/17 16:15 Dose: Not Given Bisacodyl (Dulcolax) 10 mg PO ONETIME ONE Stop: 06/04/17 20:01 Last Admin: 06/04/17 21:15 Dose: 10 mg Clopidogrel Bisulfate (Plavix) 75 mg PO ONETIME ONE Stop: 06/04/17 09:14 Last Admin: 06/04/17 10:01 Dose: 75 mg Dextrose/Water (Dextrose 50% In Water) 50 ml IV ASDIRECTED PRN PRN Reason: Hypoglycemia Last Admin: 06/05/17 05:38 Dose: 25 ml Divalproex Sodium (Divalproex Sodium) 250 mg PO ONETIME ONE Stop: 06/05/17 14:01 Last Admin: 06/05/17 14:34 Dose: 250 mg Fentanyl (Sublimaze) Confirm Administered Dose 100 mcg .ROUTE .STK-MED ONE Stop: 06/05/17 09:03 Haloperidol Lactate (Haldol) 1 mg IVPUSH Q1H PRN PRN Reason: Agitation Sodium Chloride (Normal Saline) 1,000 mls @ 125 mls/hr IV ASDIRECTED [facility] Last Admin: 06/04/17 15:15 Dose: 125 mls/hr Potassium Chloride 20 meq/Lidocaine HCl 2 ml/ Sodium Chloride 112 mls @ 56 mls/ hr IV Q2H [facility] Stop: 06/04/17 19:59 Last Admin: 06/04/17 21:02 Dose: 56 mls/hr Ferric Sodium Gluconate Complex 250 mg/ Sodium Chloride 120 mls @ 50 mls/hr IV ONETIME ONE Stop: 06/04/17 22:23 Last Admin: 06/04/17 21:14 Dose: Not Given Ferric Sodium Gluconate Complex 250 mg/ Sodium Chloride 120 mls @ 50 mls/hr IV ONETIME ONE Stop: 06/05/17 12:23 Last Admin: 06/05/17 10:54 Dose: 50 mls/hr Sodium Chloride (Normal Saline) 80 mls @ 3 mls/sec IV ASDIRECTED [facility] Stop: 06/04/17 18:00 Last Admin: 06/04/17 18:14 Dose: 3 mls/sec Dextrose/Sodium Chloride (Dextrose 5%-Normal Saline) 1,000 mls @ 125 mls/hr IV ASDIRECTED [facility] Last Admin: 06/05/17 05:50 Dose: 125 mls/hr Ceftriaxone Sodium 1 gm/ (Sodium Chloride) 50 mls @ 100 mls/hr IV Q24H [facility] Last Admin: 06/05/17 08:41 Dose: 100 mls/hr Dextrose/Sodium Chloride (Dextrose 5%-Normal Saline) 1,000 mls @ 50 mls/hr IV ASDIRECTED [facility] Last Admin: 06/05/17 14:30 Dose: 50 mls/hr Iopamidol (Isovue-300 (61%)) 100 ml IV . DIRECTED [facility] Stop: 06/04/17 18:00 Last Admin: 06/04/17 18:12 Dose: 100 ml Metformin HCl (Glucophage) 500 mg PO ONETIME ONE Stop: 06/04/17 09:14 Last Admin: 06/04/17 10:01 Dose: 500 mg Pantoprazole Sodium (Protonix Iv) 40 mg IV Q12H [facility] Last Admin: 06/05/17 14:34 Dose: 40 mg Polyethylene Glycol (Miralax) 238 gm PO ONETIME ONE Stop: 06/04/17 17:01 Last Admin: 06/04/17 19:35 Dose: 238 gm Potassium Chloride (Potassium Chloride) 20 meq PO ONETIME ONE Stop: 06/04/17 11:08 Last Admin: 06/04/17 12:33 Dose: 20 meq Potassium Chloride (Klor-Con M20) 40 meq PO ONETIME ONE Stop: 06/04/17 15:31 Last Admin: 06/04/17 18:14 Dose: Not Given Potassium Chloride (Klor-Con M20) 40 meq PO ONETIME ONE Stop: 06/06/17 09:01 Last Admin: 06/06/17 09:56 Dose: 40 meq Propofol (Diprivan 20 Ml) Confirm Administered Dose 200 mg .ROUTE .STK-MED ONE Stop: 06/05/17 09:03 Sodium Chloride (Saline Flush) 10 ml FLUSH ASDIRECTED PRN PRN Reason: Keep Vein Open - Exam Quality Assessment: Urine Catheter, DVT Prophylaxis General: Alert, Mild Distress Lungs: Normal Respiratory Effort, Decreased Breath Sounds. No: Crackles, Rales , Rhonchi, Rub, Stridor, Wheezing Cardiovascular: Regular Rate, Regular Rhythm, No Murmurs GI/Abdominal Exam: Normal Bowel Sounds, Soft, Non-Tender, No Organomegaly, No Distention Extremities: Non-Tender, No Pedal Edema Skin: Warm, Dry, Intact Psy/Mental Status: Agitated - Problem List Review Problem List Initiated/Reviewed/Updated: Yes - My Orders Last 24 Hours: My Active Orders 06/05/17 15:53 Haloperidol [Haldol] 1 mg PO Q2H PRN 06/05/17 16:00 Cefdinir [Omnicef] 300 mg PO BID 06/05/17 21:00 Divalproex Sodium 250 mg PO BIDMEALS Melatonin 9 mg PO BEDTIME 06/06/17 11:30 GLUCOSE POC LAB TO COLLECT [POC] QIDACANDBED 06/06/17 16:30 GLUCOSE POC LAB TO COLLECT [POC] QIDACANDBED 06/06/17 17:00 Potassium Chloride [Klor-Con M20] 40 meq PO ONETIME ONE 06/06/17 21:00 GLUCOSE POC LAB TO COLLECT [POC] QIDACANDBED 06/07/17 05:00 BASIC METABOLIC PANEL,BMP [CHEM] Timed 06/07/17 07:30 GLUCOSE POC LAB TO COLLECT [POC] QIDACANDBED 06/07/17 11:30 GLUCOSE POC LAB TO COLLECT [POC] QIDACANDBED 06/07/17 16:30 GLUCOSE POC LAB TO COLLECT [POC] QIDACANDBED 06/07/17 21:00 GLUCOSE POC LAB TO COLLECT [POC] QIDACANDBED 06/08/17 07:30 GLUCOSE POC LAB TO COLLECT [POC] QIDACANDBED 06/08/17 11:30 GLUCOSE POC LAB TO COLLECT [POC] QIDACANDBED 06/08/17 16:30 GLUCOSE POC LAB TO COLLECT [POC] QIDACANDBED 06/08/17 21:00 GLUCOSE POC LAB TO COLLECT [POC] QIDACANDBED 06/09/17 07:30 GLUCOSE POC LAB TO COLLECT [POC] QIDACANDBED 06/09/17 11:30 GLUCOSE POC LAB TO COLLECT [POC] QIDACANDBED 06/09/17 16:30 GLUCOSE POC LAB TO COLLECT [POC] QIDACANDBED 06/09/17 21:00 GLUCOSE POC LAB TO COLLECT [POC] QIDACANDBED 06/10/17 07:30 GLUCOSE POC LAB TO COLLECT [POC] QIDACANDBED 06/10/17 11:30 GLUCOSE POC LAB TO COLLECT [POC] QIDACANDBED 06/10/17 16:30 GLUCOSE POC LAB TO COLLECT [POC] QIDACANDBED 06/10/17 21:00 GLUCOSE POC LAB TO COLLECT [POC] QIDACANDBED 06/11/17 07:30 GLUCOSE POC LAB TO COLLECT [POC] QIDACANDBED 06/11/17 11:30 GLUCOSE POC LAB TO COLLECT [POC] QIDACANDBED 06/11/17 16:30 GLUCOSE POC LAB TO COLLECT [POC] QIDACANDBED 06/11/17 21:00 GLUCOSE POC LAB TO COLLECT [POC] QIDACANDBED 06/12/17 07:30 GLUCOSE POC LAB TO COLLECT [POC] QIDACANDBED 06/12/17 11:30 GLUCOSE POC LAB TO COLLECT [POC] QIDACANDBED 06/12/17 16:30 GLUCOSE POC LAB TO COLLECT [POC] QIDACANDBED 06/12/17 21:00 GLUCOSE POC LAB TO COLLECT [POC] QIDACANDBED 06/13/17 07:30 GLUCOSE POC LAB TO COLLECT [POC] QIDACANDBED 06/13/17 11:30 GLUCOSE POC LAB TO COLLECT [POC] QIDACANDBED 06/13/17 16:30 GLUCOSE POC LAB TO COLLECT [POC] QIDACANDBED 06/13/17 21:00 GLUCOSE POC LAB TO COLLECT [POC] QIDACANDBED 06/14/17 07:30 GLUCOSE POC LAB TO COLLECT [POC] QIDACANDBED 06/14/17 11:30 GLUCOSE POC LAB TO COLLECT [POC] QIDACANDBED 06/14/17 16:30 GLUCOSE POC LAB TO COLLECT [POC] QIDACANDBED 06/14/17 21:00 GLUCOSE POC LAB TO COLLECT [POC] QIDACANDBED 06/15/17 07:30 GLUCOSE POC LAB TO COLLECT [POC] QIDACANDBED 06/15/17 11:30 GLUCOSE POC LAB TO COLLECT [POC] QIDACANDBED 06/15/17 16:30 GLUCOSE POC LAB TO COLLECT [POC] QIDACANDBED 06/15/17 21:00 GLUCOSE POC LAB TO COLLECT [POC] QIDACANDBED 06/16/17 07:30 GLUCOSE POC LAB TO COLLECT [POC] QIDACANDBED 06/16/17 11:30 GLUCOSE POC LAB TO COLLECT [POC] QIDACANDBED 06/16/17 16:30 GLUCOSE POC LAB TO COLLECT [POC] QIDACANDBED 06/16/17 21:00 GLUCOSE POC LAB TO COLLECT [POC] QIDACANDBED 06/17/17 07:30 GLUCOSE POC LAB TO COLLECT [POC] QIDACANDBED 06/17/17 11:30 GLUCOSE POC LAB TO COLLECT [POC] QIDACANDBED 06/17/17 16:30 GLUCOSE POC LAB TO COLLECT [POC] QIDACANDBED 06/17/17 21:00 GLUCOSE POC LAB TO COLLECT [POC] QIDACANDBED 06/18/17 07:30 GLUCOSE POC LAB TO COLLECT [POC] QIDACANDBED 06/18/17 11:30 GLUCOSE POC LAB TO COLLECT [POC] QIDACANDBED 06/18/17 16:30 GLUCOSE POC LAB TO COLLECT [POC] QIDACANDBED 06/18/17 21:00 GLUCOSE POC LAB TO COLLECT [POC] QIDACANDBED 06/19/17 07:30 GLUCOSE POC LAB TO COLLECT [POC] QIDACANDBED 06/19/17 11:30 GLUCOSE POC LAB TO COLLECT [POC] QIDACANDBED 06/19/17 16:30 GLUCOSE POC LAB TO COLLECT [POC] QIDACANDBED 06/19/17 21:00 GLUCOSE POC LAB TO COLLECT [POC] QIDACANDBED 06/20/17 07:30 GLUCOSE POC LAB TO COLLECT [POC] QIDACANDBED 06/20/17 11:30 GLUCOSE POC LAB TO COLLECT [POC] QIDACANDBED 06/20/17 16:30 GLUCOSE POC LAB TO COLLECT [POC] QIDACANDBED 06/20/17 21:00 GLUCOSE POC LAB TO COLLECT [POC] QIDACANDBED 06/21/17 07:30 GLUCOSE POC LAB TO COLLECT [POC] QIDACANDBED 06/21/17 11:30 GLUCOSE POC LAB TO COLLECT [POC] QIDACANDBED 06/21/17 16:30 GLUCOSE POC LAB TO COLLECT [POC] QIDACANDBED 06/21/17 21:00 GLUCOSE POC LAB TO COLLECT [POC] QIDACANDBED 06/22/17 07:30 GLUCOSE POC LAB TO COLLECT [POC] QIDACANDBED 06/22/17 11:30 GLUCOSE POC LAB TO COLLECT [POC] QIDACANDBED 06/22/17 16:30 GLUCOSE POC LAB TO COLLECT [POC] QIDACANDBED 06/22/17 21:00 GLUCOSE POC LAB TO COLLECT [POC] QIDACANDBED 06/23/17 07:30 GLUCOSE POC LAB TO COLLECT [POC] QIDACANDBED 06/23/17 11:30 GLUCOSE POC LAB TO COLLECT [POC] QIDACANDBED 06/23/17 16:30 GLUCOSE POC LAB TO COLLECT [POC] QIDACANDBED 06/23/17 21:00 GLUCOSE POC LAB TO COLLECT [POC] QIDACANDBED 06/24/17 07:30 GLUCOSE POC LAB TO COLLECT [POC] QIDACANDBED 06/24/17 11:30 GLUCOSE POC LAB TO COLLECT [POC] QIDACANDBED 06/24/17 16:30 GLUCOSE POC LAB TO COLLECT [POC] QIDACANDBED 06/24/17 21:00 GLUCOSE POC LAB TO COLLECT [POC] QIDACANDBED 06/25/17 07:30 GLUCOSE POC LAB TO COLLECT [POC] QIDACANDBED 06/25/17 11:30 GLUCOSE POC LAB TO COLLECT [POC] QIDACANDBED 06/25/17 16:30 GLUCOSE POC LAB TO COLLECT [POC] QIDACANDBED 06/25/17 21:00 GLUCOSE POC LAB TO COLLECT [POC] QIDACANDBED 06/26/17 07:30 GLUCOSE POC LAB TO COLLECT [POC] QIDACANDBED 06/26/17 11:30 GLUCOSE POC LAB TO COLLECT [POC] QIDACANDBED 06/26/17 16:30 GLUCOSE POC LAB TO COLLECT [POC] QIDACANDBED 06/26/17 21:00 GLUCOSE POC LAB TO COLLECT [POC] QIDACANDBED 06/27/17 07:30 GLUCOSE POC LAB TO COLLECT [POC] QIDACANDBED 06/27/17 11:30 GLUCOSE POC LAB TO COLLECT [POC] QIDACANDBED 06/27/17 16:30 GLUCOSE POC LAB TO COLLECT [POC] QIDACANDBED 06/27/17 21:00 GLUCOSE POC LAB TO COLLECT [POC] QIDACANDBED 06/28/17 07:30 GLUCOSE POC LAB TO COLLECT [POC] QIDACANDBED 06/28/17 11:30 GLUCOSE POC LAB TO COLLECT [POC] QIDACANDBED 06/28/17 16:30 GLUCOSE POC LAB TO COLLECT [POC] QIDACANDBED 06/28/17 21:00 GLUCOSE POC LAB TO COLLECT [POC] QIDACANDBED 06/29/17 07:30 GLUCOSE POC LAB TO COLLECT [POC] QIDACANDBED - Plan Plan:: ASSESSMENT AND PLAN SEVERE MICROCYTIC ANEMIA-likely secondary to GI blood loss. She has received iron replacement therapy as well as 2 units of red blood cells. EGD showed no obvious source of blood loss or underlying malignancy. Hemoglobin has remained stable over the past 24 hours with no evidence of active bleeding. -Follow-up hemoglobin in a.m. PROBABLE MALIGNANCY RIGHT LUNG-chest x-ray and CT scan showed multiple large cystic lesions within the right lung. I reviewed this with the patient again today, she seemed more lucid and understanding of what we were discussing. She does not want to consider further aggressive evaluation or interventions. She requests comfort care and halfway admission with hospice. RIGHT LEG WEAKNESS-specific etiology not apparent, CT scan of the head showed no evidence of acute or subacute CVA. Leg has been significantly weak for at least 3 days. Significant anemia may be contributing factor, Christiansen as to whether there could be malignancy involving the lumbar spine. At this point patient does not want to consider further aggressive interventions or evaluation URINARY RETENTION-specific etiology not apparent, large distended bladder identified on CT scan. 900 mL of urine removed immediately after Baca catheter was placed. Baca catheter replaced last night after she pulled it out, question as to whether she may have a spinal metastatic lesion causing difficulty with urinary retention. Again she does not want to consider further aggressive interventions or evaluation, she would just like to be kept comfortable. -Continue use of Baca catheter HYPOKALEMIA-Recurrent hypokalemia on labs today -Oral potassium replacement -Recheck potassium level in a.m. TYPE 2 DIABETES MELLITUS-poor oral intake over the past several weeks, glucose level this morning found to be significantly low. -Hold usual insulin and and metformin -4 times a day glucometers -Low-dose sliding scale NovoLog MAINTENANCE ISSUES -DVT prophylaxis; SCUDs, hold on anticoagulation because of pending procedures and severe anemia -GI prophylaxis; Protonix as above -Baca catheter; not indicated -Nutrition; regular diet, nothing by mouth after midnight -Nicotine dependence; not required CODE STATUS-FULL CODE ADMISSION STATUS-patient will be admitted to inpatient status, expect at least a 2 night hospital stay for evaluation and management of problems as outlined above. At the time of this admission I do not reasonably expected evaluation and management of this problem will require more than a 96 hour hospital stay. DISPOSITION-anticipate discharge to halfway with hospice care PRIMARY CARE PROVIDER-Mayi Bryant
[2017-06-06] MEDS: Morphine 10 MG/0.5 ML Oral Syringe SL PRN (14:48)
[2017-06-06] MEDS: Melatonin 3 MG Tab PO SCH (21:28)
[2017-06-06] MEDS: Simvastatin 20 MG Tab PO SCH (21:29)
[2017-06-07] MEDS: Morphine 10 MG/0.5 ML Oral Syringe SL PRN ×3 (03:14→17:51)
[2017-06-07] MEDS: Insulin Aspart 100 Units/ML 3 ML Pen SUBCUT SCH ×4 (08:24→21:39)
[2017-06-07] MEDS: Divalproex Sodium Delayed-Release 250 MG Tab.CR PO SCH ×2 (08:27→16:48)
[2017-06-07] MEDS: Sertraline 25 MG Tab PO SCH (08:27)
--- NOTE | 2017-06-07 08:42 | OR ---
DATE OF PROCEDURE: 06/05/2017 PREOPERATIVE DIAGNOSIS: Anemia. POSTOPERATIVE DIAGNOSES: Anemia, etiology unknown; hiatal hernia; unremarkable colonoscopy. PROCEDURE: Esophagogastroduodenoscopy and colonoscopy to the cecum. ANESTHESIA: IV anesthesia with monitored anesthesia care. INDICATION: This 86-year-old white female was admitted yesterday with a hemoglobin of about 6. She vomited some blood a few weeks ago. She has been transfused. She has undergone a bowel prep. Request was made for upper and lower endoscopy. I counseled her for this, including risks and alternatives, and she gave her informed consent to proceed. DESCRIPTION OF PROCEDURE: The patient was placed in the left lateral decubitus position. IV anesthesia was administered by the Anesthesia Service. Time-out was held. The flexible video Olympus upper endoscope was passed through her mouth, down her esophagus, and into her stomach. The scope was easily passed through the pylorus into the duodenum , reaching its third portion. The scope was then slowly withdrawn examining the mucosa throughout. The duodenal mucosa appeared unremarkable. The scope was brought up to the pylorus. The antrum appeared unremarkable. The scope was retroflexed. The proximal stomach appeared unremarkable. The scope was straightened and brought up to the GE junction. There was evidence of a hiatal hernia. Otherwise, this was fairly unremarkable with some chronic inflammation present. The scope was then brought proximally up through remainder of the esophagus, which otherwise appeared unremarkable, and it was removed. Next, a rectal exam was performed, which was unremarkable. The flexible video Olympus colonoscope was introduced through her anus, up her rectum, and out her colon all the way to the cecum. The prep was good. The scope was then slowly withdrawn examining the mucosa throughout. No mucosal abnormalities were noted. The scope was retroflexed in the rectum with the distal rectum appearing unremarkable. The scope was straightened and removed. She tolerated the procedure well. Cristhian Cárdenas MD /[id number] MTDD
[2017-06-07] MEDS: Sulfamethoxazole/Trimethoprim 800-160 MG Tab PO SCH ×2 (08:44→20:17)
--- NOTE | 2017-06-07 08:49 | CR ---
Chest 2V INDICATION: Cough FINDINGS: Comparison 12/31/2014. Large oval and round masses that nearly replace the right hemithorax, are new since prior exam. Findings are worrisome for malignancy. Heart size normal. Left lung clear. Please refer to CT chest, abdomen, and pelvis from 06/04/2017.
--- NOTE | 2017-06-07 10:08 | PCM.PN ---
- General Info Date of Service: 06/07/17 Subjective Update: Ms. Crockett has remained fairly stable since yesterday and denies significant pain or discomfort. She has been changed to comfort cares only with the plan to proceed with discharge the custodial and hospice admission. Functional Status: Reports: Pain Controlled, Tolerating Diet - Review of Systems General: Reports: Weakness Pulmonary: Reports: No Symptoms Cardiovascular: Reports: No Symptoms Gastrointestinal: Reports: No Symptoms - Patient Data Vitals - Most Recent: Last Vital Signs Temp 97.9 F 06/07/17 08:37 Pulse 109 H 06/07/17 08:37 Resp 18 06/07/17 08:37 BP 134/62 06/07/17 08:37 Pulse Ox 91 L 06/07/17 08:37 Weight - Most Recent: 132 lb 3.2 oz I&O - Last 24 Hours: Intake & Output 06/06/17 06/07/17 06/07/17 22:59 06:59 14:59 Intake Total 60 Output Total 450 200 Balance -450 -140 Shayan Results Last 24 Hours: Microbiology 06/04/17 19:12 Stool Culture - Preliminary Stool / Feces - Final NEGATIVE FOR SHIGA TOXIN 1 - Final NEGATIVE FOR SHIGA TOXIN 2 06/05/17 07:48 Urine Culture - Final Urine, Clean Catch Escherichia Coli Med Orders - Current: Current Medications Acetaminophen (Tylenol) 650 mg PO Q4H PRN PRN Reason: Pain (Mild 1-3)/fever Last Admin: 06/06/17 07:52 Dose: 650 mg Hydrocodone Bitart/Acetaminophen (Salome 325-5 Mg) 1 tab PO Q4H PRN PRN Reason: Pain (moderate 4-6) Albuterol (Proventil Neb Soln) 2.5 mg NEB Q4H PRN PRN Reason: Shortness Of Breath/wheezing Dextrose (Glutose 15) 15 gm PO ASDIRECTED PRN PRN Reason: Hypoglycemia Divalproex Sodium (Divalproex Sodium) 250 mg PO BIDMEALS [facility] Last Admin: 06/07/17 08:27 Dose: 250 mg Docusate Sodium (Colace) 100 mg PO BID PRN PRN Reason: Constipation Haloperidol (Haldol) 1 mg PO Q2H PRN PRN Reason: Agitation Insulin Aspart (Novolog) 0 unit SUBCUT QIDACANDBED [facility] PRN Reason: Protocol Last Admin: 06/07/17 08:24 Dose: 1 units Levothyroxine Sodium 100 mcg/ (Levothyroxine Sodium 75 mcg) 175 mcg PO ACBREAKFAST [facility] Last Admin: 06/07/17 08:27 Dose: 175 mcg Magnesium Hydroxide (Milk Of Magnesia) 30 ml PO Q12H PRN PRN Reason: Constipation Melatonin (Melatonin) 9 mg PO BEDTIME [facility] Last Admin: 06/06/17 21:28 Dose: 9 mg Morphine Sulfate (Morphine 10 Mg/0.5 Ml Oral Syringe) 5 mg SL Q1H PRN PRN Reason: Pain Last Admin: 06/07/17 05:15 Dose: 5 mg Polyethylene Glycol (Miralax) 17 gm PO DAILY PRN PRN Reason: Constipation Sertraline HCl (Zoloft) 25 mg PO DAILY [facility] Last Admin: 06/07/17 08:27 Dose: 25 mg Simvastatin (Zocor) 10 mg PO BEDTIME [facility] Last Admin: 06/06/17 21:29 Dose: 10 mg Sodium Chloride (Saline Flush) 10 ml FLUSH ASDIRECTED PRN PRN Reason: Keep Vein Open Trimethoprim/Sulfamethoxazole (Septra Ds) 1 tab PO BID [facility] Last Admin: 06/07/17 08:44 Dose: 1 tab Discontinued Medications Aspirin (Aspirin) 81 mg PO ONETIME ONE Stop: 06/04/17 09:15 Last Admin: 06/04/17 10:01 Dose: 81 mg Bisacodyl (Dulcolax) 10 mg PO ONETIME ONE Stop: 06/04/17 13:46 Last Admin: 06/04/17 16:15 Dose: Not Given Bisacodyl (Dulcolax) 10 mg PO ONETIME ONE Stop: 06/04/17 20:01 Last Admin: 06/04/17 21:15 Dose: 10 mg Cefdinir (Omnicef) 300 mg PO BID [facility] Last Admin: 06/06/17 21:29 Dose: 300 mg Clopidogrel Bisulfate (Plavix) 75 mg PO ONETIME ONE Stop: 06/04/17 09:14 Last Admin: 06/04/17 10:01 Dose: 75 mg Dextrose/Water (Dextrose 50% In Water) 50 ml IV ASDIRECTED PRN PRN Reason: Hypoglycemia Last Admin: 06/05/17 05:38 Dose: 25 ml Divalproex Sodium (Divalproex Sodium) 250 mg PO ONETIME ONE Stop: 06/05/17 14:01 Last Admin: 06/05/17 14:34 Dose: 250 mg Fentanyl (Sublimaze) Confirm Administered Dose 100 mcg .ROUTE .STK-MED ONE Stop: 06/05/17 09:03 Haloperidol Lactate (Haldol) 1 mg IVPUSH Q1H PRN PRN Reason: Agitation Sodium Chloride (Normal Saline) 1,000 mls @ 125 mls/hr IV ASDIRECTED [facility] Last Admin: 06/04/17 15:15 Dose: 125 mls/hr Potassium Chloride 20 meq/Lidocaine HCl 2 ml/ Sodium Chloride 112 mls @ 56 mls/ hr IV Q2H [facility] Stop: 06/04/17 19:59 Last Admin: 06/04/17 21:02 Dose: 56 mls/hr Ferric Sodium Gluconate Complex 250 mg/ Sodium Chloride 120 mls @ 50 mls/hr IV ONETIME ONE Stop: 06/04/17 22:23 Last Admin: 06/04/17 21:14 Dose: Not Given Ferric Sodium Gluconate Complex 250 mg/ Sodium Chloride 120 mls @ 50 mls/hr IV ONETIME ONE Stop: 06/05/17 12:23 Last Admin: 06/05/17 10:54 Dose: 50 mls/hr Sodium Chloride (Normal Saline) 80 mls @ 3 mls/sec IV ASDIRECTED [facility] Stop: 06/04/17 18:00 Last Admin: 06/04/17 18:14 Dose: 3 mls/sec Dextrose/Sodium Chloride (Dextrose 5%-Normal Saline) 1,000 mls @ 125 mls/hr IV ASDIRECTED [facility] Last Admin: 06/05/17 05:50 Dose: 125 mls/hr Ceftriaxone Sodium 1 gm/ (Sodium Chloride) 50 mls @ 100 mls/hr IV Q24H [facility] Last Admin: 06/05/17 08:41 Dose: 100 mls/hr Dextrose/Sodium Chloride (Dextrose 5%-Normal Saline) 1,000 mls @ 50 mls/hr IV ASDIRECTED [facility] Last Admin: 06/05/17 14:30 Dose: 50 mls/hr Iopamidol (Isovue-300 (61%)) 100 ml IV . DIRECTED [facility] Stop: 06/04/17 18:00 Last Admin: 06/04/17 18:12 Dose: 100 ml Metformin HCl (Glucophage) 500 mg PO ONETIME ONE Stop: 06/04/17 09:14 Last Admin: 06/04/17 10:01 Dose: 500 mg Ondansetron HCl (Zofran) 4 mg IV Q4H PRN PRN Reason: Nausea/Vomiting Pantoprazole Sodium (Protonix Iv) 40 mg IV Q12H [facility] Last Admin: 06/05/17 14:34 Dose: 40 mg Polyethylene Glycol (Miralax) 238 gm PO ONETIME ONE Stop: 06/04/17 17:01 Last Admin: 06/04/17 19:35 Dose: 238 gm Potassium Chloride (Potassium Chloride) 20 meq PO ONETIME ONE Stop: 06/04/17 11:08 Last Admin: 06/04/17 12:33 Dose: 20 meq Potassium Chloride (Klor-Con M20) 40 meq PO ONETIME ONE Stop: 06/04/17 15:31 Last Admin: 06/04/17 18:14 Dose: Not Given Potassium Chloride (Klor-Con M20) 40 meq PO ONETIME ONE Stop: 06/06/17 09:01 Last Admin: 06/06/17 09:56 Dose: 40 meq Potassium Chloride (Klor-Con M20) 40 meq PO ONETIME ONE Stop: 06/06/17 17:01 Last Admin: 06/06/17 16:42 Dose: 40 meq Propofol (Diprivan 20 Ml) Confirm Administered Dose 200 mg .ROUTE .STK-MED ONE Stop: 06/05/17 09:03 Sodium Chloride (Saline Flush) 10 ml FLUSH ASDIRECTED PRN PRN Reason: Keep Vein Open - Exam General: No Acute Distress, Lethargic Lungs: Normal Respiratory Effort, Decreased Breath Sounds. No: Rales, Rhonchi, Wheezing Cardiovascular: Regular Rate, Regular Rhythm GI/Abdominal Exam: Normal Bowel Sounds, Soft, Non-Tender, No Organomegaly, No Distention Extremities: Non-Tender, No Pedal Edema Skin: Warm, Dry, Intact - Problem List Review Problem List Initiated/Reviewed/Updated: Yes - My Orders Last 24 Hours: My Active Orders 06/06/17 11:33 Morphine [Morphine 10 MG/0.5 ML Oral Syringe] 5 mg SL Q1H PRN 06/06/17 Lunch Consistent Carbohydrate Diet [DIET] 06/07/17 09:00 Sulfamethoxazole/Trimethoprim [Septra DS] 1 tab PO BID 06/07/17 11:30 GLUCOSE POC LAB TO COLLECT [POC] QIDACANDBED 06/07/17 16:30 GLUCOSE POC LAB TO COLLECT [POC] QIDACANDBED 06/07/17 21:00 GLUCOSE POC LAB TO COLLECT [POC] QIDACANDBED 06/08/17 07:30 GLUCOSE POC LAB TO COLLECT [POC] QIDACANDBED 06/08/17 11:30 GLUCOSE POC LAB TO COLLECT [POC] QIDACANDBED 06/08/17 16:30 GLUCOSE POC LAB TO COLLECT [POC] QIDACANDBED 06/08/17 21:00 GLUCOSE POC LAB TO COLLECT [POC] QIDACANDBED 06/09/17 07:30 GLUCOSE POC LAB TO COLLECT [POC] QIDACANDBED 06/09/17 11:30 GLUCOSE POC LAB TO COLLECT [POC] QIDACANDBED 06/09/17 16:30 GLUCOSE POC LAB TO COLLECT [POC] QIDACANDBED 06/09/17 21:00 GLUCOSE POC LAB TO COLLECT [POC] QIDACANDBED 06/10/17 07:30 GLUCOSE POC LAB TO COLLECT [POC] QIDACANDBED 06/10/17 11:30 GLUCOSE POC LAB TO COLLECT [POC] QIDACANDBED 06/10/17 16:30 GLUCOSE POC LAB TO COLLECT [POC] QIDACANDBED 06/10/17 21:00 GLUCOSE POC LAB TO COLLECT [POC] QIDACANDBED 06/11/17 07:30 GLUCOSE POC LAB TO COLLECT [POC] QIDACANDBED 06/11/17 11:30 GLUCOSE POC LAB TO COLLECT [POC] QIDACANDBED 06/11/17 16:30 GLUCOSE POC LAB TO COLLECT [POC] QIDACANDBED 06/11/17 21:00 GLUCOSE POC LAB TO COLLECT [POC] QIDACANDBED 06/12/17 07:30 GLUCOSE POC LAB TO COLLECT [POC] QIDACANDBED 06/12/17 11:30 GLUCOSE POC LAB TO COLLECT [POC] QIDACANDBED 06/12/17 16:30 GLUCOSE POC LAB TO COLLECT [POC] QIDACANDBED 06/12/17 21:00 GLUCOSE POC LAB TO COLLECT [POC] QIDACANDBED 06/13/17 07:30 GLUCOSE POC LAB TO COLLECT [POC] QIDACANDBED 06/13/17 11:30 GLUCOSE POC LAB TO COLLECT [POC] QIDACANDBED 06/13/17 16:30 GLUCOSE POC LAB TO COLLECT [POC] QIDACANDBED 06/13/17 21:00 GLUCOSE POC LAB TO COLLECT [POC] QIDACANDBED 06/14/17 07:30 GLUCOSE POC LAB TO COLLECT [POC] QIDACANDBED 06/14/17 11:30 GLUCOSE POC LAB TO COLLECT [POC] QIDACANDBED 06/14/17 16:30 GLUCOSE POC LAB TO COLLECT [POC] QIDACANDBED 06/14/17 21:00 GLUCOSE POC LAB TO COLLECT [POC] QIDACANDBED 06/15/17 07:30 GLUCOSE POC LAB TO COLLECT [POC] QIDACANDBED 06/15/17 11:30 GLUCOSE POC LAB TO COLLECT [POC] QIDACANDBED 06/15/17 16:30 GLUCOSE POC LAB TO COLLECT [POC] QIDACANDBED 06/15/17 21:00 GLUCOSE POC LAB TO COLLECT [POC] QIDACANDBED 06/16/17 07:30 GLUCOSE POC LAB TO COLLECT [POC] QIDACANDBED 06/16/17 11:30 GLUCOSE POC LAB TO COLLECT [POC] QIDACANDBED 06/16/17 16:30 GLUCOSE POC LAB TO COLLECT [POC] QIDACANDBED 06/16/17 21:00 GLUCOSE POC LAB TO COLLECT [POC] QIDACANDBED 06/17/17 07:30 GLUCOSE POC LAB TO COLLECT [POC] QIDACANDBED 06/17/17 11:30 GLUCOSE POC LAB TO COLLECT [POC] QIDACANDBED 06/17/17 16:30 GLUCOSE POC LAB TO COLLECT [POC] QIDACANDBED 06/17/17 21:00 GLUCOSE POC LAB TO COLLECT [POC] QIDACANDBED 06/18/17 07:30 GLUCOSE POC LAB TO COLLECT [POC] QIDACANDBED 06/18/17 11:30 GLUCOSE POC LAB TO COLLECT [POC] QIDACANDBED 06/18/17 16:30 GLUCOSE POC LAB TO COLLECT [POC] QIDACANDBED 06/18/17 21:00 GLUCOSE POC LAB TO COLLECT [POC] QIDACANDBED 06/19/17 07:30 GLUCOSE POC LAB TO COLLECT [POC] QIDACANDBED 06/19/17 11:30 GLUCOSE POC LAB TO COLLECT [POC] QIDACANDBED 06/19/17 16:30 GLUCOSE POC LAB TO COLLECT [POC] QIDACANDBED 06/19/17 21:00 GLUCOSE POC LAB TO COLLECT [POC] QIDACANDBED 06/20/17 07:30 GLUCOSE POC LAB TO COLLECT [POC] QIDACANDBED 06/20/17 11:30 GLUCOSE POC LAB TO COLLECT [POC] QIDACANDBED 06/20/17 16:30 GLUCOSE POC LAB TO COLLECT [POC] QIDACANDBED 06/20/17 21:00 GLUCOSE POC LAB TO COLLECT [POC] QIDACANDBED 06/21/17 07:30 GLUCOSE POC LAB TO COLLECT [POC] QIDACANDBED 06/21/17 11:30 GLUCOSE POC LAB TO COLLECT [POC] QIDACANDBED 06/21/17 16:30 GLUCOSE POC LAB TO COLLECT [POC] QIDACANDBED 06/21/17 21:00 GLUCOSE POC LAB TO COLLECT [POC] QIDACANDBED 06/22/17 07:30 GLUCOSE POC LAB TO COLLECT [POC] QIDACANDBED 06/22/17 11:30 GLUCOSE POC LAB TO COLLECT [POC] QIDACANDBED 06/22/17 16:30 GLUCOSE POC LAB TO COLLECT [POC] QIDACANDBED 06/22/17 21:00 GLUCOSE POC LAB TO COLLECT [POC] QIDACANDBED 06/23/17 07:30 GLUCOSE POC LAB TO COLLECT [POC] QIDACANDBED 06/23/17 11:30 GLUCOSE POC LAB TO COLLECT [POC] QIDACANDBED 06/23/17 16:30 GLUCOSE POC LAB TO COLLECT [POC] QIDACANDBED 06/23/17 21:00 GLUCOSE POC LAB TO COLLECT [POC] QIDACANDBED 06/24/17 07:30 GLUCOSE POC LAB TO COLLECT [POC] QIDACANDBED 06/24/17 11:30 GLUCOSE POC LAB TO COLLECT [POC] QIDACANDBED 06/24/17 16:30 GLUCOSE POC LAB TO COLLECT [POC] QIDACANDBED 06/24/17 21:00 GLUCOSE POC LAB TO COLLECT [POC] QIDACANDBED 06/25/17 07:30 GLUCOSE POC LAB TO COLLECT [POC] QIDACANDBED 06/25/17 11:30 GLUCOSE POC LAB TO COLLECT [POC] QIDACANDBED 06/25/17 16:30 GLUCOSE POC LAB TO COLLECT [POC] QIDACANDBED 06/25/17 21:00 GLUCOSE POC LAB TO COLLECT [POC] QIDACANDBED 06/26/17 07:30 GLUCOSE POC LAB TO COLLECT [POC] QIDACANDBED 06/26/17 11:30 GLUCOSE POC LAB TO COLLECT [POC] QIDACANDBED 06/26/17 16:30 GLUCOSE POC LAB TO COLLECT [POC] QIDACANDBED 06/26/17 21:00 GLUCOSE POC LAB TO COLLECT [POC] QIDACANDBED 06/27/17 07:30 GLUCOSE POC LAB TO COLLECT [POC] QIDACANDBED 06/27/17 11:30 GLUCOSE POC LAB TO COLLECT [POC] QIDACANDBED 06/27/17 16:30 GLUCOSE POC LAB TO COLLECT [POC] QIDACANDBED 06/27/17 21:00 GLUCOSE POC LAB TO COLLECT [POC] QIDACANDBED 06/28/17 07:30 GLUCOSE POC LAB TO COLLECT [POC] QIDACANDBED 06/28/17 11:30 GLUCOSE POC LAB TO COLLECT [POC] QIDACANDBED 06/28/17 16:30 GLUCOSE POC LAB TO COLLECT [POC] QIDACANDBED 06/28/17 21:00 GLUCOSE POC LAB TO COLLECT [POC] QIDACANDBED 06/29/17 07:30 GLUCOSE POC LAB TO COLLECT [POC] QIDACANDBED - Plan Plan:: ASSESSMENT AND PLAN SEVERE MICROCYTIC ANEMIA 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 -Hold usual insulin and and metformin -4 times a day glucometers -Low-dose sliding scale NovoLog MAINTENANCE ISSUES -DVT prophylaxis; SCUDs, hold on anticoagulation because of pending procedures and severe anemia -GI prophylaxis; Protonix as above -Baca catheter; not indicated -Nutrition; regular diet, nothing by mouth after midnight -Nicotine dependence; not required CODE STATUS-FULL CODE ADMISSION STATUS-patient will be admitted to inpatient status, expect at least a 2 night hospital stay for evaluation and management of problems as outlined above. At the time of this admission I do not reasonably expected evaluation and management of this problem will require more than a 96 hour hospital stay. DISPOSITION-anticipate discharge to custodial with hospice care PRIMARY CARE PROVIDER-Mayi Bryant
--- NOTE | 2017-06-07 16:50 | PCM.DCSUM1 ---
Discharge Summary - Hospital Course Brief History: Ms. Crocktet an 86-year-old woman who was admitted through the emergency department with severe anemia and a history of progressive weakness. - Discharge Data Discharge Date: 06/07/17 Discharge Disposition: DC/Tfer to SNF 03 Condition: Poor - Discharge Diagnosis/Problem(s) (1) Metastatic primary lung cancer SNOMED Code(s): 253142577 ICD Code: C34.90 - MALIGNANT NEOPLASM OF UNSP PART OF UNSP BRONCHUS OR LUNG Status: Acute Current Visit: Yes (2) Right leg weakness SNOMED Code(s): 889109150 ICD Code: R29.898 - OTH SYMPTOMS AND SIGNS INVOLVING THE MUSCULOSKELETAL SYSTEM Status: Acute Current Visit: Yes (3) Insulin dependent type 2 diabetes mellitus SNOMED Code(s): 828759771 ICD Code: E11.9 - TYPE 2 DIABETES MELLITUS WITHOUT COMPLICATIONS; Z79.4 - ENVIRONMENTAL TECHNICAL OFFICER (CURRENT) USE OF INSULIN Status: Chronic Current Visit: No (4) Urinary retention SNOMED Code(s): 961167644 ICD Code: R33.9 - RETENTION OF URINE, UNSPECIFIED Status: Acute Current Visit: Yes (5) Microcytic anemia SNOMED Code(s): 234630841 ICD Code: D50.9 - IRON DEFICIENCY ANEMIA, UNSPECIFIED Status: Acute Current Visit: Yes - Patient Summary/Data Consults: Consultations 06/04/17 14:34 Consult to Physician [CONS] Routine Consulting Provider: Cristhian Cárdenas Call Completed to Consulting Physician: Yes Reason for Consult: Anemia, please see for colonoscopy and EGD in a.m. Hospital Course: Ms. Crockett is an 86-year-old woman who presented to the emergency department with a hemoglobin of 6.9 and a history of progressive weakness. Reports from the patient as well as her significant other were that she did not been out of bed much for the past 3 weeks. When she had attempted to get out of bed was noted to have new right leg weakness. On evaluation in the emergency department her white blood cell count was normal, but she was found to have hypo-daily anemia with a potassium of 3.1. She was admitted to the hospital for further evaluation and management. She was transfused 2 units of red blood cells for management of her anemia. Prior to transfusion iron levels were obtained and found to be low. She was given 2 infusions of 250 mg of Ferrlecit IV. Chest x- ray was obtained and showed to obvious very large masses in the right lung field. CT scan of the chest abdomen and pelvis was obtained for further evaluation. On initial examination she had been noted to have a palpable suprapubic and left lower quadrant mass. CT scan showed the 2 large masses noted on chest x-ray as well as other multiple masses within the right chest consistent with malignancy and metastatic disease. CT scan of the abdomen and pelvis showed no other obvious abnormalities other than a very large and distended bladder. Baca catheter was placed and over 900 mL of urine came out immediately. She was seen by Dr. Cárdenas for surgical consult and after colonoscopy prep EGD and colonoscopy were performed which showed no obvious source of blood loss to explain her iron deficient anemia. Was felt likely that her urinary retention and leg weakness were secondary to metastatic disease involving the lumbar spine. Findings and situation were reviewed with the patient as well as a family friend who is her healthcare power of prosecuting attorney. The patient's ability to make decisions about her healthcare was somewhat suspect because of confusion and agitation. Both the patient as well as her significant other and her healthcare power of prosecuting attorney all agreed that she would not want further aggressive interventions or management. Decision was made to proceed with comfort cares only and no further aggressive evaluation or interventions were performed. Her agitation was managed with Depakote and melatonin. She was placed on sublingual morphine as needed for pain and by mouth Haldol as needed for agitation. She will be discharged to the longterm on comfort cares only , no further evaluations or hospitalizations. Consideration will be given for hospice consult after discharge and possible hospice admission. Activity will be as tolerated and she will resume her usual diet. - Patient Instructions Diet: Usual Diet as Tolerated Activity: As Tolerated Other/Special Instructions: Comfort cares only, consider hospice consult and possible hospice admission after discharge. - Discharge Plan Prescriptions/Med Rec: Divalproex Sodium 250 mg PO BIDMEALS #60 tab.cr Haloperidol [Haldol] 1 mg PO Q2H PRN #30 tablet PRN Reason: Agitation Melatonin 9 mg PO BEDTIME #90 tablet Morphine [Morphine 10 MG/0.5 ML Oral Syringe] 5 mg SL Q1H PRN #30 ml PRN Reason: Pain Home Medications: Home Meds Acetaminophen [Tylenol] 325 mg PO Q4H PRN 12/31/14 [History] Levothyroxine Sodium [Synthroid] 137 mcg PO ACBREAKFAST 12/31/14 [History] Sertraline HCl 25 mg PO DAILY 02/05/15 [History] Divalproex Sodium 250 mg PO BIDMEALS #60 tab.cr 06/07/17 [Rx] Haloperidol [Haldol] 1 mg PO Q2H PRN #30 tablet 06/07/17 [Rx] Melatonin 9 mg PO BEDTIME #90 tablet 06/07/17 [Rx] Morphine [Morphine 10 MG/0.5 ML Oral Syringe] 5 mg SL Q1H PRN #30 ml 06/07/17 [ Rx] Forms: ED Department Discharge Referrals: PCP,None [Primary Care Provider] - - Patient Data Vitals - Most Recent: Last Vital Signs Temp 97.9 F 06/07/17 08:37 Pulse 109 H 06/07/17 08:37 Resp 18 06/07/17 08:37 BP 134/62 06/07/17 08:37 Pulse Ox 91 L 06/07/17 08:37 Weight - Most Recent: 132 lb 3.203 oz I&O - Last 24 hours: Intake & Output 06/07/17 06/07/17 06/07/17 06:59 14:59 22:59 Intake Total 60 240 Output Total 200 Balance -140 240 GIOVANI Results - Last 24 hrs: Microbiology 06/04/17 19:12 Stool Culture - Preliminary Stool / Feces - Final NEGATIVE FOR SHIGA TOXIN 1 - Final NEGATIVE FOR SHIGA TOXIN 2 06/05/17 07:48 Urine Culture - Final Urine, Clean Catch Escherichia Coli Med Orders - Current: Current Medications Acetaminophen (Tylenol) 650 mg PO Q4H PRN PRN Reason: Pain (Mild 1-3)/fever Last Admin: 06/06/17 07:52 Dose: 650 mg Hydrocodone Bitart/Acetaminophen (Branscomb 325-5 Mg) 1 tab PO Q4H PRN PRN Reason: Pain (moderate 4-6) Albuterol (Proventil Neb Soln) 2.5 mg NEB Q4H PRN PRN Reason: Shortness Of Breath/wheezing Dextrose (Glutose 15) 15 gm PO ASDIRECTED PRN PRN Reason: Hypoglycemia Divalproex Sodium (Divalproex Sodium) 250 mg PO BIDMEALS BISHNU Last Admin: 06/07/17 08:27 Dose: 250 mg Docusate Sodium (Colace) 100 mg PO BID PRN PRN Reason: Constipation Haloperidol (Haldol) 1 mg PO Q2H PRN PRN Reason: Agitation Insulin Aspart (Novolog) 0 unit SUBCUT QIDACANDBED [facility] PRN Reason: Protocol Last Admin: 06/07/17 12:13 Dose: 1 units Levothyroxine Sodium 100 mcg/ (Levothyroxine Sodium 75 mcg) 175 mcg PO ACBREAKFAST [facility] Last Admin: 06/07/17 08:27 Dose: 175 mcg Magnesium Hydroxide (Milk Of Magnesia) 30 ml PO Q12H PRN PRN Reason: Constipation Melatonin (Melatonin) 9 mg PO BEDTIME [facility] Last Admin: 06/06/17 21:28 Dose: 9 mg Morphine Sulfate (Morphine 10 Mg/0.5 Ml Oral Syringe) 5 mg SL Q1H PRN PRN Reason: Pain Last Admin: 06/07/17 05:15 Dose: 5 mg Polyethylene Glycol (Miralax) 17 gm PO DAILY PRN PRN Reason: Constipation Sertraline HCl (Zoloft) 25 mg PO DAILY [facility] Last Admin: 06/07/17 08:27 Dose: 25 mg Simvastatin (Zocor) 10 mg PO BEDTIME [facility] Last Admin: 06/06/17 21:29 Dose: 10 mg Sodium Chloride (Saline Flush) 10 ml FLUSH ASDIRECTED PRN PRN Reason: Keep Vein Open Trimethoprim/Sulfamethoxazole (Septra Ds) 1 tab PO BID [facility] Last Admin: 06/07/17 08:44 Dose: 1 tab Discontinued Medications Aspirin (Aspirin) 81 mg PO ONETIME ONE Stop: 06/04/17 09:15 Last Admin: 06/04/17 10:01 Dose: 81 mg Bisacodyl (Dulcolax) 10 mg PO ONETIME ONE Stop: 06/04/17 13:46 Last Admin: 06/04/17 16:15 Dose: Not Given Bisacodyl (Dulcolax) 10 mg PO ONETIME ONE Stop: 06/04/17 20:01 Last Admin: 06/04/17 21:15 Dose: 10 mg Cefdinir (Omnicef) 300 mg PO BID [facility] Last Admin: 06/06/17 21:29 Dose: 300 mg Clopidogrel Bisulfate (Plavix) 75 mg PO ONETIME ONE Stop: 06/04/17 09:14 Last Admin: 06/04/17 10:01 Dose: 75 mg Dextrose/Water (Dextrose 50% In Water) 50 ml IV ASDIRECTED PRN PRN Reason: Hypoglycemia Last Admin: 06/05/17 05:38 Dose: 25 ml Divalproex Sodium (Divalproex Sodium) 250 mg PO ONETIME ONE Stop: 06/05/17 14:01 Last Admin: 06/05/17 14:34 Dose: 250 mg Fentanyl (Sublimaze) Confirm Administered Dose 100 mcg .ROUTE .STK-MED ONE Stop: 06/05/17 09:03 Haloperidol Lactate (Haldol) 1 mg IVPUSH Q1H PRN PRN Reason: Agitation Sodium Chloride (Normal Saline) 1,000 mls @ 125 mls/hr IV ASDIRECTED [facility] Last Admin: 06/04/17 15:15 Dose: 125 mls/hr Potassium Chloride 20 meq/Lidocaine HCl 2 ml/ Sodium Chloride 112 mls @ 56 mls/ hr IV Q2H [facility] Stop: 06/04/17 19:59 Last Admin: 06/04/17 21:02 Dose: 56 mls/hr Ferric Sodium Gluconate Complex 250 mg/ Sodium Chloride 120 mls @ 50 mls/hr IV ONETIME ONE Stop: 06/04/17 22:23 Last Admin: 06/04/17 21:14 Dose: Not Given Ferric Sodium Gluconate Complex 250 mg/ Sodium Chloride 120 mls @ 50 mls/hr IV ONETIME ONE Stop: 06/05/17 12:23 Last Admin: 06/05/17 10:54 Dose: 50 mls/hr Sodium Chloride (Normal Saline) 80 mls @ 3 mls/sec IV ASDIRECTED [facility] Stop: 06/04/17 18:00 Last Admin: 06/04/17 18:14 Dose: 3 mls/sec Dextrose/Sodium Chloride (Dextrose 5%-Normal Saline) 1,000 mls @ 125 mls/hr IV ASDIRECTED [facility] Last Admin: 06/05/17 05:50 Dose: 125 mls/hr Ceftriaxone Sodium 1 gm/ (Sodium Chloride) 50 mls @ 100 mls/hr IV Q24H [facility] Last Admin: 06/05/17 08:41 Dose: 100 mls/hr Dextrose/Sodium Chloride (Dextrose 5%-Normal Saline) 1,000 mls @ 50 mls/hr IV ASDIRECTED [facility] Last Admin: 06/05/17 14:30 Dose: 50 mls/hr Iopamidol (Isovue-300 (61%)) 100 ml IV . DIRECTED [facility] Stop: 06/04/17 18:00 Last Admin: 06/04/17 18:12 Dose: 100 ml Metformin HCl (Glucophage) 500 mg PO ONETIME ONE Stop: 06/04/17 09:14 Last Admin: 06/04/17 10:01 Dose: 500 mg Ondansetron HCl (Zofran) 4 mg IV Q4H PRN PRN Reason: Nausea/Vomiting Pantoprazole Sodium (Protonix Iv) 40 mg IV Q12H [facility] Last Admin: 06/05/17 14:34 Dose: 40 mg Polyethylene Glycol (Miralax) 238 gm PO ONETIME ONE Stop: 06/04/17 17:01 Last Admin: 06/04/17 19:35 Dose: 238 gm Potassium Chloride (Potassium Chloride) 20 meq PO ONETIME ONE Stop: 06/04/17 11:08 Last Admin: 06/04/17 12:33 Dose: 20 meq Potassium Chloride (Klor-Con M20) 40 meq PO ONETIME ONE Stop: 06/04/17 15:31 Last Admin: 06/04/17 18:14 Dose: Not Given Potassium Chloride (Klor-Con M20) 40 meq PO ONETIME ONE Stop: 06/06/17 09:01 Last Admin: 06/06/17 09:56 Dose: 40 meq Potassium Chloride (Klor-Con M20) 40 meq PO ONETIME ONE Stop: 06/06/17 17:01 Last Admin: 06/06/17 16:42 Dose: 40 meq Propofol (Diprivan 20 Ml) Confirm Administered Dose 200 mg .ROUTE .STK-MED ONE Stop: 06/05/17 09:03 Sodium Chloride (Saline Flush) 10 ml FLUSH ASDIRECTED PRN PRN Reason: Keep Vein Open *Q Meaningful Use (DIS) - VTE *Q VTE Criteria *Q: VTE Pharmacological Contraindications *Q: Patient has Severe Anemia - Stroke *Q Stroke Criteria *Q: - AMI *Q AMI Criteria *Q:
[2017-06-07] MEDS: Melatonin 3 MG Tab PO SCH (20:17)
[2017-06-07] MEDS: Simvastatin 20 MG Tab PO SCH (20:17)
[2017-06-08] MEDS: Morphine 10 MG/0.5 ML Oral Syringe SL PRN (01:13)
[2017-06-08] MEDS: Sulfamethoxazole/Trimethoprim 800-160 MG Tab PO SCH (08:18)
[2017-06-08] MEDS: Divalproex Sodium Delayed-Release 250 MG Tab.CR PO SCH (08:18)
[2017-06-08] MEDS: Sertraline 25 MG Tab PO SCH (08:18)
[2017-06-08 08:19] VITALS: BP 144/66
[2017-06-08] MEDS: Insulin Aspart 100 Units/ML 3 ML Pen SUBCUT SCH ×2 (08:20→12:10)
== END 2017-06-08 13:25 | DRG 181 ==
LOC: JP.ED 08:20 → JP.MS 12:28
PROVIDERS: ADMIT Hospitalist; ATTEND Internal Medicine
PROC: 30233N1 Transfusion of Nonautologous Red Blood Cells into Peripheral Vein, Percutaneous Approach (ICD-10-PCS; principal; 2017-06-04)
PROC: 30233N1 Transfusion of Nonautologous Red Blood Cells into Peripheral Vein, Percutaneous Approach (ICD-10-PCS; 2017-06-05)
PROC: 0DJ08ZZ Inspection of Upper Intestinal Tract, Via Natural or Artificial Opening Endoscopic (ICD-10-PCS; 2017-06-05)
PROC: 0DJD8ZZ Inspection of Lower Intestinal Tract, Via Natural or Artificial Opening Endoscopic (ICD-10-PCS; 2017-06-05)
DX: C34.90 Malignant neoplasm of unspecified part of unspecified bronchus or lung (principal); C79.51 Secondary malignant neoplasm of bone; I10 Essential (primary) hypertension; D50.9 Iron deficiency anemia, unspecified; E87.6 Hypokalemia; E11.649 Type 2 diabetes mellitus with hypoglycemia without coma; Z66 Do not resuscitate; R53.1 Weakness; D64.9 Anemia, unspecified; Z51.5 Encounter for palliative care; E03.9 Hypothyroidism, unspecified; Z87.891 Personal history of nicotine dependence; Z79.4 Long term (current) use of insulin; Z79.82 Long term (current) use of aspirin; K44.9 Diaphragmatic hernia without obstruction or gangrene; R33.9 Retention of urine, unspecified; R45.1 Restlessness and agitation; R41.0 Disorientation, unspecified; M19.90 Unspecified osteoarthritis, unspecified site; Z86.718 Personal history of other venous thrombosis and embolism; H54.7 Unspecified visual loss; R29.898 Other symptoms and signs involving the musculoskeletal system; Z89.422 Acquired absence of other left toe(s)
CPT/HCPCS: 36415; 70450 ×2; 80048; 82962; 84443; 84484; 85027; 86850; 86900; 86901; 86920; 86922; 93005; 99285; A9270 ×3; 36430; 71020; 71020-26; 71260; 74177; 80053; 80076; 81001; 82272; 82728; 83550; 83735; 85025; 87046; 87086; 87088; 87186; 87493; 87899; 93010; 99284; C9113; J0696; J2704; J2916; J3010; J3480; J7030; J7040; J7050; P9016; Q9967